=== PATIENT | female | born 1995 | race Caucasian/White ===

== ENCOUNTER 2019-07-01 18:59 | Emergency (ER) | payer MEDICAID, SELFPAY | END 2019-07-01 21:40 | disposition home or self-care (01) | PROVIDERS: Emergency Provider Emergency Medicine; Family Provider Family Medicine; Visit Provider Emergency Medicine | DX: O26.892 Other specified pregnancy related conditions, second trimester (principal); R10.9 Unspecified abdominal pain; Z3A.19 19 weeks gestation of pregnancy | CPT/HCPCS: 76815; 80053; 81001; 83690; 85025; 87086; 99281 ==

== ENCOUNTER 2019-07-09 08:21 | Outpatient (CLI) | payer MEDICAID, SELFPAY ==
--- NOTE | 2019-07-09 | US_ITS ---
WS: [id number] OB ultrasound, 07/09/2019 Clinical Data: SUBSEQUENT IN SECOND TRIMESTER Comparison: None. Findings: There is a single intrauterine in a transverse lie. The placenta is posterior and grade 0. There is a normal amount of amnionic fluid. The heart rate is 141 beats per minute. Measurements of growth and development: BPD: 4.7 cm HC: 17.6 cm AC: 15.7 cm FL: 3.2 cm The estimated weight is 352 mg or approximately 12 ounces The estimated gestational age is 20 w eeks 2 days with an ANASTACIO of approximately 11/24/2019. anatomy show a normal stomach, kidneys, bladder, cord insertion, three-vessel cord, entire spin e, four-chamber heart, lateral cerebral ventricles, cerebellum and cisterna magna. US/US OB >= 14 weeks fetus [id number] Impression: 1. Single intrauterine in a transverse lie. 2. Estimated gestational age 20 weeks 2 days with an ANASTACIO of 11/24/2019. 3. heart rate 141 beats per minute.
== END 2019-07-09 08:22 | disposition home or self-care (01) ==
LOC: RADOUTREAD 15:25
PROVIDERS: Family Provider Family Medicine; PCP Family Medicine; Visit Provider Family Medicine
DX: Z34.82 Encounter for supervision of other normal pregnancy, second trimester (principal)

== ENCOUNTER 2019-07-13 17:17 | Outpatient (CLI) | payer MEDICAID, SELFPAY ==
[2019-07-13 17:37] VITALS: BP 121/62; PULSE 78; RESP 17; TEMP 36.7
[2019-07-13 18:05] VITALS: BMI 31.4
[2019-07-13 18:30] LABS: Urine Appearance Clear (CLEAR); Urine Color Yellow (Yellow)
[2019-07-13 18:31] LABS: Bilirubin Urine Neg (NEGATIVE); Blood Urine 3+ (Negative); Glucose Urine UA Norm (Normal); Ketones Urine Negative (Negative); Leukocyte Esterase Urine Negative (Negative); Nitrate Urine Negative (Negative); Protein Urine Neg (Negative); Urobilinogen Urine 1 mg/dL (Negative); pH Urine 5 (5-7)
[2019-07-13] MEDS: acetaminophen 500 mg Tablet 1000 MG PO (18:32)
[2019-07-13 18:34] LABS: RBC Urine >100 /hpf (0-2)
[2019-07-13 18:35] LABS: Add Urine Culture? Yes; Bacteria Urine 1+; Mucus Urine 2+; Squamous Epithelial Cell Urine 0-4 (0-5)
--- NOTE | 2019-07-13 18:43 | USR_ITS ---
PROCEDURE INFORMATION: Exam: US Retroperitoneal Complete. Exam date and time: 07/13/2019 6:51 PM Age: 23 years old Clinical indication: ; Patient HX: Pain in back; Additional info: Low back pain, low abdominal pain. 21 weeks . TECHNIQUE: Imaging protocol: Real-time ultrasound of the retroperitoneum with image documentation. Complete exam. COMPARISON: No relevant prior studies available. FINDINGS: The right kidney measures 12.4 cm in length. The left kidney measures 10.5 cm in length. There is moderate right hydronephrosis. Possibly this could be secondary to hydronephrosis of . However, an occult right ureteral calculus should also be considered. Pyelonephritis might be another possible etiology. Please correlate clinically. No left hydronephrosis. No definite perinephric fluid. Neither ureter is obviously visible at this time. The renal parenchymal thickness and echogenicity are within normal limits. There is no sonographically visible renal calculus, mass, or cyst. Some echogenic material/debris in the urinary bladder. This appearance is nonspecific, but this can be seen with cystitis/infection. The included images of the urinary bladder otherwise appear essentially unremarkable. US/US renal BI* [id number] IMPRESSION: 1. Moderate right hydronephrosis, see above discussion. 2. Some echogenic material/debris in the urinary bladder, see above 3. Other findings discussed above.
[2019-07-13 18:53] VITALS: BP 116/61; PULSE 70; RESP 17
[2019-07-13 19:30] VITALS: RESP 17; TEMP 36.6
[2019-07-13 19:46] VITALS: BP 115/61; PULSE 77
[2019-07-13] MEDS: cephALEXin 500 mg Capsule PO (19:54)
--- NOTE | 2019-07-13 19:59 | PC.NURSE ---
Keflex 500mg PO TID x7 days no refill per Dr Ingram. Medication called to Will at [facility] in [place]
== END 2019-07-13 19:56 | disposition home or self-care (01) ==
LOC: OPOB 17:30 → OBGYN 17:32 → OPOB 07-14 14:16
PROVIDERS: Family Provider Family Medicine; PCP Family Medicine; Visit Provider Family Medicine
DX: O36.8190 Decreased fetal movements, unspecified trimester, not applicable or unspecified (principal); Z3A.00 Weeks of gestation of pregnancy not specified
CPT/HCPCS: 76770; 81001; 87086; 99211; A9270

== ENCOUNTER 2019-10-31 22:23 | Outpatient (CLI) | payer MEDICAID, SELFPAY ==
[2019-10-31] VITALS (8 sets, daily range): BP systolic 106–137; BP diastolic 47–68; PULSE 81–88; RESP 16; TEMP 36.7; BMI 36.8
[2019-10-31 23:59] LABS: Nitrazine Paper, PH Negative
[2019-11-01] VITALS (9 sets, daily range): BP systolic 0–129; BP diastolic 0–84; PULSE 76–84; RESP 16; TEMP 36.6
== END 2019-11-01 01:18 | disposition home or self-care (01) ==
LOC: OPOB 22:24 → OBGYN 11-01 01:10
PROVIDERS: Family Provider Family Medicine; PCP Family Medicine; Visit Provider Family Medicine
DX: O26.899 Other specified pregnancy related conditions, unspecified trimester (principal); Z3A.00 Weeks of gestation of pregnancy not specified; R10.9 Unspecified abdominal pain; N89.8 Other specified noninflammatory disorders of vagina
CPT/HCPCS: 59025; 83986; 99211

== ENCOUNTER 2019-11-18 19:53 | Emergency (ER) | payer MEDICAID, SELFPAY ==
[2019-11-18 19:55] VITALS: BP 128/87; PULSE 90; RESP 16; TEMP 36.9; O2SAT 97; BMI 37.1
--- NOTE | 2019-11-18 20:17 | USCV_ITS ---
Paola Francis Age: 24 Gender: F : 1995 Exam Date: 11/18/2019 20:53 Ordering Phys: Roselia Renee MD Technologist: Dez Mata Exam Location: [facility] [place]_ Indication: RT LEG PAIN AND EDEMA HISTORY: Lower extremity swelling. PROCEDURES: Venous duplex imaging was performed in only the right lower extremity. The following venous structures were evaluated: common femoral vein, profunda vein, proximal portion of the greater saphenous vein, superficial femoral vein, and the popliteal vein. In addition, the posterior tibial and peroneal trunk were evaluated. FINDINGS: Normal 2-D Doppler and augmentation and compressibility throughout the lower extremity venous structures. Additional imaging through the proximal calf veins also reveals no thrombus. Limited evaluation of the greater saphenous vein is patent with no thrombus.. CONCLUSIONS No evidence of right lower extremity DVT. Dhruv Son MD (Electronically Signed) Final Date: 20 Nov 2019 08:17 S
[2019-11-18 20:58] VITALS: PULSE 68
[2019-11-18 21:04] VITALS: BP 138/94; PULSE 102; RESP 18; O2SAT 96
--- NOTE | 2019-11-18 21:05 | ED_ITS ---
HPI - Extremity Problem General: Chief complaint: Extremity Problem,Nontraumatic Stated complaint: right leg swelling/no accident Time Seen by Provider: 11/18/19 20:48 Source: patient Mode of arrival: ambulatory Limitations: no limitations History of Present Illness: HPI Narrative: Patient is a 24-year-old female at almost 40 weeks who presents to ED today with complaints of left leg pain and swelling that she noticed today. Patient states she contacted her OB Dr. Ingram who recommended she come to the emergency department for DVT rule out. Patient denies any injury or trauma. She is not having any shortness of breath or difficulty breathing. She has not noticed any redness/ warmth or pallor/coolness to the extremity MD Complaint: extremity pain and extremity swelling Onset (ago): hour(s) Pain Consistency: constant Location: right Relieving factors: nothing Exacerbating factors: nothing Associated symptoms: Reports no associated symptoms; Deny chest pain or fever(s) Review of Systems Const: Denies: fever(s) or chills Card: Denies: chest pain, palpitations, edema, lightheadedness, syncope, pre- syncope or dyspnea on exertion Resp: Denies: dyspnea Musc: Reports: extremity pain and extremity swelling; Denies: joint pain, joint swelling, joint redness, joint warmth, limited range of motion or muscle weakness Neuro: Denies: numbness in extremities, weakness in extremities or sensory changes PFSH ED PFSH: Social History Smoking and tobacco status: never smoked Physical Exam Const: COMMON NORMALS: no acute distress, average body habitus, patient oriented x3, no limitations, healthy appearing, alert and well nourished Extremity: OTHER: Patient with pain located to her right calf. There is an area that feels firm that could be seen with a superficial thrombophlebitis although I do not palpate an obvious cord. Could also be seen with soft tissue strain. Calf circumference is equal bilaterally. There is no color or temperature changes noted to her extremity. DP and PT pulses are intact. Cap refill is brisk. Neuro: COMMON NORMALS: patient oriented x3 SENSORIUM/ORIENTATION: Yes alert Course Vital Signs: Vital signs: Vital Signs Temperature 98.5 F 11/18/19 19:55 Pulse Rate 102 H 11/18/19 21:04 Respiratory Rate 18 11/18/19 21:04 Blood Pressure 138/94 11/18/19 21:04 Pulse Oximetry 96 11/18/19 21:04 MDM - Extremity (Nontraumatic) MDM Narrative: Medical decision making narrative: no DVT present; no signs of infection; recommend ice/heat and follow up with Dr. Ingram this week as scheduled; return to ED precautions given Imaging Data^: US R LE venous: My impression: Per Dez Mata scanning tech?no DVT Discharge Plan Discharge Patient Disposition: Home, Self-Care Clinical Impression: Right calf pain Condition: Stable Prescriptions: No Action PNV cmb#95-ferrous fumarate-FA [] 28 mg iron- 800 mcg Tablet 1 tab PO DAILY RF: 0 Discharge Orders: Discharge Order (Routine); Ordered 11/18/19 Ordered By: Lanie Taylor Referrals: Erick Ingram MD [Primary Care Provider] - Activity Restrictions/Additional Instructions: As discussed there was no DVT present on your ultrasound today. You may apply ice/heat to affected area. Please follow up with Dr. Ingram as scheduled next week. Discharge Date/Time: 11/18/19 21:14 Coding Level of Care Code ED Technical Service Rep for Lillie Stapleton
[2019-11-18 21:13] VITALS: BP 138/94; PULSE 96; RESP 16; O2SAT 97
== END 2019-11-18 21:14 | disposition home or self-care (01) ==
LOC: ER 21:13
PROVIDERS: Emergency Provider Physician Assistant; PCP Family Medicine
DX: O26.893 Other specified pregnancy related conditions, third trimester (principal); M79.18 Myalgia, other site; Z3A.40 40 weeks gestation of pregnancy
CPT/HCPCS: 12345; 93971; 99281; 99282

== ENCOUNTER 2019-11-24 04:56 | Inpatient (IN) | payer MEDICAID, SELFPAY ==
[2019-11-24] VITALS (39 sets, daily range): BP systolic 0–166; BP diastolic 0–124; PULSE 70–97; RESP 16–22; TEMP 36.4–36.7; O2SAT 96–98; BMI 36.8
[2019-11-24 05:42] LABS: Basophils # 0.1 10^3/uL (0.0-0.1); Basophils % 0.4 %; Eosinophils # 0.1 10^3/uL (0.0-0.8); Eosinophils % 0.8 %; Hematocrit 35.2 % (37.0-47.0); Lymphocytes # 3.2 10^3/uL (0.8-4.8); Mean Corpuscular HGB Conc 34.1 g/dL (30.0-36.0); Mean Corpuscular Hemoglobin 29.1 pg (28.0-34.0); Mean Corpuscular Volume 85.4 fL (81-99); Mean Platelet Volume 10.4 fL (7.4-10.4); Monocytes % 7.8 %; Neutrophils # 8.8 10^3/uL (1.8-7.7); Neutrophils % 65.8 %; Nucleated Red Blood Cells % 0 %; Platelet Count 231 10^3/cmm (130-400); Red Blood Count 4.12 10^6/uL (4.1-5.3); Red Cell Distribution Width 13.2 % (12.1-15.1); White Blood Count 13.4 10^3/uL (4.0-10.0)
[2019-11-24] MEDS: fentaNYL 50 mcg/mL INJ 2mL IV (07:06)
[2019-11-24] MEDS: dextrose 5%-lactated ringers 1,000 ML 125 ML IV (07:30)
[2019-11-24] MEDS: oxytocin 30 UNIT/500 ML BAG 600 UNIT IV (07:55)
--- NOTE | 2019-11-24 08:24 | PM.DELIVERY ---
Delivery Note: Date of delivery: November 24, 2019 Delivery: DELIVERY: The patient progressed to complete without difficulty. She delivered a female with a weight of 8 pounds 13 ounces with Apgars of 9, 9. The baby was delivered from the LONNIE position. The baby's mouth and nose were suctioned at the site of the perineum. The baby was then completely delivered and placed on the mother's abdomen. The cord was then clamped and cut. There was no nuchal cord. There was no meconium. The placenta and 3 vessel cord were delivered intact shortly thereafter. The perineum and vaginal vault were carefully examined. No lacerations were noted. Both the mother and the baby were in stable condition. Estimated blood loss was 100 mL Post-Delivery Status: Good A&P Assessment and plan (1) Spontaneous vaginal delivery: Status: Acute (2) 39 weeks gestation of : Status: Acute Coding Level of Care Code Acute Rail Specialist for Chg Fwd Diagnoses Spontaneous vaginal delivery O80 39 weeks gestation of Z3A.39
[2019-11-24] MEDS: docusate sodium 100 mg Capsule PO ×2 (09:01→18:31)
[2019-11-24] MEDS: prenatal vitamin Capsule 1 CAP PO (09:01)
[2019-11-24] MEDS: HYDROcodone-acetaminophen 5-325 mg Tablet PO (09:02)
[2019-11-24 19:58] LABS: Hematocrit 32.5 % (37.0-47.0); Hemoglobin 10.9 g/dL (11.5-15.3); Mean Corpuscular HGB Conc 33.5 g/dL (30.0-36.0); Mean Corpuscular Hemoglobin 28.8 pg (28.0-34.0); Mean Platelet Volume 10.3 fL (7.4-10.4); Platelet Count 206 10^3/cmm (130-400); Red Blood Count 3.78 10^6/uL (4.1-5.3); Red Cell Distribution Width 13.3 % (12.1-15.1); White Blood Count 14.5 10^3/uL (4.0-10.0)
[2019-11-25 04:50] VITALS: BP 138/86; PULSE 83; RESP 18; TEMP 36.8; O2SAT 98
[2019-11-25] MEDS: prenatal vitamin Capsule 1 CAP PO (08:59)
[2019-11-25] MEDS: docusate sodium 100 mg Capsule PO (08:59)
--- NOTE | 2019-11-25 11:02 | PM.OBGYDC ---
Discharge Providers LOGISTICS ANALYTICS MANAGER Date of Admission: 11/24/19 04:56 Date of Discharge: 11/25/19 Attending Provider at Admission: Erick Ingram MD Attending Provider at Discharge: Erick Ingram MD Primary Care Provider: Erick Ingram MD Diagnoses at Discharge Discharge Diagnosis (1) Spontaneous vaginal delivery: Status: Acute (2) 39 weeks gestation of : Status: Acute Reason for Visit Reason for Visit: Reason For Visit: labor Hospital Course Hospital Course: The patient presented to the hospital in active labor. She progressed to complete without difficulty. Information Peripartum Data: Delivery Method: Vaginal Physical Exam Narrative: EXAM NARRATIVE: The patient is alert. She appears comfortable. Her heart has a regular rate and rhythm with no murmurs appreciated. Lungs are clear to auscultation bilaterally. Her fundus is firm and below the umbilicus. Discharge Data Data Completed and Pending: Labs from last 24 hours 11/24/19 19:49 WBC 14.5 H RBC 3.78 L Hgb 10.9 L Hct 32.5 L MCV 86.0 MCH 28.8 MCHC 33.5 RDW 13.3 Plt Count 206 MPV 10.3 Vitals: Last Vital Signs Temp 98.2 F 11/25/19 04:50 Pulse 83 11/25/19 04:50 Resp 18 11/25/19 04:50 BP 138/86 11/25/19 04:50 Pulse Ox 98 11/25/19 04:50 Discharge Plan Discharge Patient Disposition: Home, Self-Care Condition: Stable Prescriptions: New ibuprofen 800 mg Tablet 800 mg PO TID Qty: 45 RF: 0 Continued PNV cmb#95-ferrous fumarate-FA [] 28 mg iron- 800 mcg Tablet 1 tab PO DAILY RF: 0 Discharge Orders: Discharge Order (Routine); Ordered 11/25/19 Ordered By: Erick Ingram Referrals: Erick Ingram MD [Primary Care Provider] - 6 Weeks Discharge Diet: Regular Discharge Activity: Limit activity as instructed Patient Instructions: OB Discharge Report, OB Food/Drug Interaction Guide, OB Care at Home, OB Vaginal Deliveries Discharge Attestations LOGISTICS ANALYTICS MANAGER Time Spent in Discharge Care*: less than 30 min Coding Level of Care Code Acute Safety Security Officer for Chg Fwd Diagnoses Spontaneous vaginal delivery O80 39 weeks gestation of Z3A.39
[2019-11-25 11:50] VITALS: BP 129/90; PULSE 98; RESP 17; TEMP 36.7; O2SAT 97
== END 2019-11-25 12:00 | disposition home or self-care (01) | DRG 807 ==
LOC: OPOB 04:56 → OBGYN 04:56
PROVIDERS: Admitting Provider Family Medicine; PCP Family Medicine; Visit Provider Family Medicine
DX: O80 Encounter for full-term uncomplicated delivery (principal); Z37.0 Single live birth; Z3A.39 39 weeks gestation of pregnancy; Z77.22 Contact with and (suspected) exposure to environmental tobacco smoke (acute) (chronic)
CPT/HCPCS: 12345; 36415; 59409; 85025; 85027; 96374; J3010

== ENCOUNTER → 2020-04-07 14:15 | Outpatient (BNVA) | payer MEDICAID, SELFPAY | PROVIDERS: PCP Family Medicine; Visit Provider Nurse Practitioner Family | DX: J06.9 Acute upper respiratory infection, unspecified (principal); Z20.828 Contact with and (suspected) exposure to other viral communicable diseases; Z11.59 Encounter for screening for other viral diseases | CPT/HCPCS: 87635 ==

== ENCOUNTER → 2020-09-19 11:49 | Outpatient (BNVA) | payer BC, MEDICAID, SELFPAY | PROVIDERS: PCP Family Medicine; Visit Provider Nurse Practitioner | DX: N39.0 Urinary tract infection, site not specified (principal) | CPT/HCPCS: 81000; 87077; 87086; 87184 ==

== ENCOUNTER 2020-12-02 23:42 | Outpatient (CLI) | payer BC, MEDICAID, SELFPAY ==
[2020-12-02 23:52] VITALS: TEMP 35.9
[2020-12-02 23:53] VITALS: BP 120/70; PULSE 88
[2020-12-03 00:24] VITALS: BP 104/61; PULSE 70
[2020-12-03 00:25] VITALS: RESP 16
[2020-12-03 00:38] VITALS: BMI 35.3
[2020-12-03 00:40] LABS: Urine Appearance Cloudy (CLEAR)
[2020-12-03 00:41] LABS: Bilirubin Urine 2+ (Negative); Blood Urine 3+ (Negative); Glucose Urine UA Norm (Normal); Ketones Urine Negative (Negative); Leukocyte Esterase Urine 2+ (Negative); Nitrate Urine Negative (Negative); Protein Urine Neg (Negative); Urine Color Red (Yellow); Urobilinogen Urine Norm (Negative); pH Urine 7 (5-7)
[2020-12-03 00:42] LABS: Add Urine Culture? Yes; Bacteria Urine TRACE /hpf; RBC Urine 40-50 /hpf (0-2); Squamous Epithelial Cell Urine 0-4 /hpf (0-5); WBC Urine 25-40 /hpf (0-5)
[2020-12-03 00:55] VITALS: TEMP 36.1
[2020-12-03 00:56] VITALS: BP 109/57; PULSE 72
[2020-12-03 00:58] VITALS: BP 109/57; PULSE 72; RESP 15; TEMP 36.7
== END 2020-12-03 01:08 | disposition home or self-care (01) ==
LOC: OPOB 23:43 → OBGYN 12-03 01:05
PROVIDERS: PCP Family Medicine; Visit Provider Family Medicine
DX: O46.90 Antepartum hemorrhage, unspecified, unspecified trimester (principal); Z3A.00 Weeks of gestation of pregnancy not specified
CPT/HCPCS: 59025; 81001; 87086; 99211

== ENCOUNTER 2021-01-03 01:58 | Outpatient (CLI) | payer BC, MEDICAID, SELFPAY ==
[2021-01-03] VITALS (17 sets, daily range): BP systolic 115–140; BP diastolic 59–84; PULSE 73–103; RESP 15; TEMP 36.3–36.6; BMI 36.3
[2021-01-03] MEDS: acetaminophen 500 mg Tablet 1000 MG PO (02:49)
[2021-01-03 03:32] LABS: Add Urine Microscopic? YES; Bilirubin Urine Neg (Negative); Blood Urine 2+ (Negative); Glucose Urine UA Norm (Normal); Ketones Urine Negative (Negative); Leukocyte Esterase Urine 2+ (Negative); Nitrate Urine Negative (Negative); Protein Urine Neg (Negative); Sulfosalicylic Acid Urine Negative (Negative); Urine Appearance Clear (CLEAR); Urine Color Yellow (Yellow); Urobilinogen Urine Norm (Negative); pH Urine 8 (5-7)
[2021-01-03 03:33] LABS: Add Urine Culture? No; Bacteria Urine 1+ /hpf; Squamous Epithelial Cell Urine 15-25 /hpf (0-5); WBC Urine 40-55 /hpf (0-5)
[2021-01-03] MEDS: cefTRIAXone 1,000 MG in sodium chloride 0.9% (plus) 50 ML 100 MG IV (04:01)
[2021-01-03] MEDS: sodium chloride 0.9% 1,000 ML 999 ML IV (04:02)
[2021-01-03] MEDS: terbutaline 1 mg/mL INJ 0.25 MG SUBCUT (05:59)
[2021-01-03] MEDS: HYDROcodone-acetaminophen 5-325 mg Tablet 1 TAB PO (06:40)
--- NOTE | 2021-01-03 06:51 | PM.SDS ---
Short Stay Summary Providers Date of Admit/Discharge: 01/10/21 Attending Provider: Erick Ingram MD Primary Care Provider: Erick Ingram MD Chief Complaint: contractions HPI History of Present Illness Paola Francis is a 25 year old 3 para 2-0-0-2 female at 36 weeks and 5 days who presents to the hospital with vaginal pressure and abdominal pain. It has been going on for several hours before arriving at the hospital. After arrival to hospital, she was found to have consistent contractions. Her cervix was found to be closed. Review of Systems General: Reports: 10 or more systems reviewed and unremarkable except in HPI and below Const: Reports: fatigue; Denies: fever(s) Eyes: Denies: change in vision Card: Denies: chest pain Musc: Reports: back pain Missael/Lymph: Denies: easy bruising Home Meds/Allergies Home Medications and Allergies Home Medications Medication Instructions Recorded Confirmed Type prenat.vits,paulo,dwr-dygp-kljce 1 tab PO DAILY 09/19/20 12/03/20 History Allergies Allergy/AdvReac Type Severity Reaction Status Date / Time No Known Allergies Allergy Verified 09/19/20 10:59 PFSH Acute PFSH: Social History Smoking and tobacco status: never smoked Female Reproductive History: : 3 Vitals/I&O/Wt Last Vital Signs Temp 97.3 F L 01/03/21 02:18 Pulse 86 01/03/21 05:59 Resp 15 01/03/21 02:01 BP 140/72 01/03/21 05:59 Weight last 48 hrs Weight 225 lb Physical Exam Const: COMMON NORMALS: patient oriented x3 and alert HENMT: COMMON NORMALS: moist oral mucous membranes HEAD & SCALP: normal to inspection Chest: COMMONS NORMALS: normal inspection of the chest Resp: COMMON NORMALS: clear to auscultation bilaterally AUSCULTATION: clear to auscultation bilaterally Cardio: COMMON NORMALS: regular rate and regular rhythm RATE: regular rate RHYTHM: regular rhythm GI: INSPECTION: Yes normal to inspection and Yes other (Gravid) Extremity: COMMON NORMALS: normal to inspection GENERAL: Yes edema (Trace) Neuro: COMMON NORMALS: patient oriented x3, moves all extremities and no sensory deficits noted SENSORIUM/ORIENTATION: Yes alert Psych: COMMON NORMALS: mental status grossly normal Skin: COMMON NORMALS: no rashes or lesions noted GENERAL SKIN EXAM: no rashes or lesions noted Hospital Course Hospital Course The patient presented to the hospital where she was noted to having contractions every couple of minutes. She was hydrated with IV fluids. Her contractions did not improve. A urinalysis was performed which demonstrated a urinary tract infection. She was given Rocephin IV x1. She continued to have contractions and she was given terbutaline and hydrocodone. Her contractions improved. SSS Data Data Completed and Pending: Pending at discharge Category Date Time Status Urine Culture Sta t Lab 01/03/21 06:13 Ordered Diagnoses at Discharge Discharge Diagnosis (1) labor: Status: Acute (2) Urinary tract infection: Status: Acute Discharge Plan Discharge Patient Disposition: Home Prescriptions: No Action prenat.vits,paulo,xrw-gxbh-mkeuf Tablet 1 tab PO DAILY RF: 0 Discharge Orders: Discharge Order (Routine); Ordered 01/03/21 Ordered By: Erick Ingram Patient Instructions: Labor (GEN), Urinary Tract Infection in Women (GEN), OB Undelivered Discharge Discharge Date/Time: 01/03/21 08:40 Attestations Medical Necessity Statement*: The patient stay in the hospital will be less than 24 hours Time Spent in Patient Care*: less than 30 min Quality Metrics Clinical Quality Measures: During this hospital stay, did patient experience: None Coding Level of Care Code Acute Remediation Bioanalytics Consultant for Chg Fwd Exam Comprehensive Diagnoses labor O60.00 Urinary tract infection N39.0
== END 2021-01-03 08:40 | disposition home or self-care (01) ==
LOC: OPOB 01:59 → OBGYN 02:00
PROVIDERS: PCP Family Medicine; Visit Provider Family Medicine
DX: O26.899 Other specified pregnancy related conditions, unspecified trimester (principal); Z3A.00 Weeks of gestation of pregnancy not specified; R10.9 Unspecified abdominal pain
CPT/HCPCS: 12345; 59025; 81001; 87086; 96365; 96372; 99211; J0696; J3105; J7030

== ENCOUNTER 2021-02-21 02:27 | Inpatient (IN) | payer BC, MEDICAID, SELFPAY ==
[2021-02-21] VITALS (32 sets, daily range): BP systolic 102–141; BP diastolic 56–94; PULSE 80–126; RESP 16–20; TEMP 36.4–36.8; O2SAT 98–99; BMI 37.1
[2021-02-21] MEDS: fentaNYL 50 mcg/mL INJ 2mL IVP ×2 (03:13→04:50)
[2021-02-21] MEDS: lactated ringers 1,000 ML 999 ML IV (04:20)
[2021-02-21 05:24] LABS: Basophils # 0.1 10^3/uL (0.0-0.1); Basophils % 0.4 %; Eosinophils # 0.1 10^3/uL (0.0-0.8); Eosinophils % 1.1 %; Hematocrit 34.7 % (37.0-47.0); Hemoglobin 11.5 g/dL (11.5-15.3); Lymphocytes # 2.8 10^3/uL (0.8-4.8); Lymphocytes % 24.5 %; Mean Corpuscular HGB Conc 33.1 g/dL (30.0-36.0); Mean Corpuscular Hemoglobin 27.1 pg (28.0-34.0); Mean Corpuscular Volume 81.6 fl (81-99); Mean Platelet Volume 10.8 fL (7.4-10.4); Monocytes # 0.9 10^3/uL (0.2-0.9); Monocytes % 8.1 %; Neutrophils # 7.42 10^3/uL (1.8-7.7); Nucleated Red Blood Cells % 0 %; Platelet Count 229 10^3/cmm (130-400); Red Blood Count 4.25 10^6/uL (4.1-5.3); Red Cell Distribution Width 14.2 % (12.1-15.1); White Blood Count 11.4 10^3/uL (4.0-10.0)
[2021-02-21] MEDS: dextrose 5%-lactated ringers 1,000 ML 125 ML IV (05:54)
[2021-02-21] MEDS: oxytocin 30 UNIT/500 ML BAG 500 UNIT IV (06:08)
--- NOTE | 2021-02-21 06:34 | PM.OPHPUD ---
Labor & Delivery H&P Update Date of Procedure: February 21, 2021 Date H&P Performed: 02/17/21 H&P update information: I have reviewed H&P completed within last 30 days, I have examined patient prior to procedure and Changes to prior documentation as noted here Changes to previous documentation: The patient is 6 centimeters dilated and in active labor Admission Diagnosis: Preop diagnosis: 25-year-old 3 para 2 at 39 weeks presenting in active labor Planned procedure: Spontaneous vaginal delivery
--- NOTE | 2021-02-21 06:36 | P.PCNOB_ITS ---
Delivery Note: Date of delivery: February 21, 2021 Pre-Delivery Course: The patient is a 25-year-old 3 para 2-0-0-2 at 39 weeks estimated gestational age who presents to the hospital with spontaneous rupture of membranes. Her membranes ruptured shortly before arriving at the hospital. She is having intermittent contractions. Her contractions increased in frequency. She gradually progressed to complete without difficulty. Her was unremarkable. She was GBS negative. Glucose screen was negative. Her blood type is O+. She is Covid negative. The remainder of her labs are within normal limits. She had consistent care. Delivery: DELIVERY: The patient progressed to complete without difficulty. She delivered a male with a weight of 7 pounds 15 ounces with Apgars of 8, 9. The baby was delivered from the LONNIE position and placed on the mother's abdomen. The cord was then clamped and cut 1 minute after delivery. There was no nuchal cord. There was no meconium. The placenta and 3 vessel cord were delivered intact shortly thereafter. The perineum and vaginal vault were carefully examined. A first-degree posterior midline laceration that was not bleeding was noted but was not repaired. Both the mother and the baby were in stable condition. Post-Delivery Status: Good A&P Assessment and plan (1) 39 weeks gestation of : I anticipate routine care. She does desire sterilization. But her Covid test was done more than a week ago. We will have to see if that will be allowable. Status: Resolved (2) Spontaneous vaginal delivery: Status: Resolved (3) Sterilization consult: Status: Acute Coding Level of Care Code Acute Virtual Office Assistant for Lillie Stapleton Diagnoses 39 weeks gestation of Z3A.39 Spontaneous vaginal delivery O80 Sterilization consult Z30.09
[2021-02-21] MEDS: oxytocin 30 UNIT/500 ML BAG 600 UNIT IV (07:50)
[2021-02-21] MEDS: miSOPROStol 200 mcg Tablet 800 MCG PR (09:15)
[2021-02-21] MEDS: ibuprofen 800 mg tablet PO ×2 (14:56→21:45)
[2021-02-21] MEDS: docusate sodium 100 mg Capsule PO (18:26)
[2021-02-21 18:44] LABS: Hematocrit 29.5 % (37.0-47.0); Hemoglobin 9.7 g/dL (11.5-15.3); Mean Corpuscular HGB Conc 32.9 g/dL (30.0-36.0); Mean Corpuscular Hemoglobin 27.1 pg (28.0-34.0); Mean Corpuscular Volume 82.4 fl (81-99); Platelet Count 175 10^3/cmm (130-400); Red Blood Count 3.58 10^6/uL (4.1-5.3); Red Cell Distribution Width 14.1 % (12.1-15.1); White Blood Count 13.9 10^3/uL (4.0-10.0)
[2021-02-22] VITALS (11 sets, daily range): BP systolic 108–139; BP diastolic 62–88; PULSE 60–88; RESP 12–18; TEMP 36.4–36.8; O2SAT 94–99
--- NOTE | 2021-02-22 06:02 | P.HP_ITS ---
Providers/Chief Complaint Admitting Physician: Erick Ingram MD Primary Care Provider: Erick Ingram MD Chief Complaint: possible SROM HPI CAREER LAW CLERK History of Present Illness Paola Francis is a 25 year old female at 39 weeks who presented to the hospital with spontaneous rupture of membranes. She progressed to complete and had an unremarkable delivery of a healthy appearing male . Earlier in her she had expressed a desire for sterilization. We discussed options and alternatives. We discussed the risks of a tubal ligation including the risks of bleeding, infection, and damage to intra-abdominal organs. We also discussed the 1 and 200 chance of becoming after successful tubal ligation. After discussion, she expressed a desire to have it done, and signed her consent for it. After delivering her baby, she once again expressed a desire to a tubal ligation performed. Present Details : 3 Para: 2 Labs Rubella: Immune RPR: Negative GBS: Negative Review of Systems General: Reports: 10 or more systems reviewed and unremarkable except in HPI and below Const: Reports: fatigue; Denies: fever(s) Eyes: Denies: change in vision Card: Denies: chest pain GI: Reports: heartburn Musc: Reports: back pain Neuro: Reports: headache(s) (Intermittently during her ) Missael/Lymph: Denies: easy bruising Medications/Allergies Home Medications Medication Instructions Recorded Confirmed Last Taken Type prenat.vits,paulo,klx-kvnm-xvqqm 1 tab PO DAILY 09/19/20 02/21/21 02/20/21 08:00 History Allergies Allergy/AdvReac Type Severity Reaction Status Date / Time No Known Allergies Allergy Verified 09/19/20 10:59 PFSH CAREER LAW CLERK PFSH: Social History Smoking and tobacco status: never smoked Vitals/I&O/Wt Last Vital Signs Temp 98.1 F 02/22/21 04:00 Pulse 76 02/22/21 04:00 Resp 17 02/21/21 20:00 BP 118/79 02/22/21 04:00 Pulse Ox 97 02/22/21 04:00 02/21/21 02/21/21 02/22/21 14:59 22:59 06:59 Intake Total 2110 / 2110 Output Total 350 / 350 Balance 1760 / 1760 Weight last 48 hrs Weight 230 lb Physical Exam Narrative: EXAM NARRATIVE: Fundus is firm and below the umbilicus Const: COMMON NORMALS: patient oriented x3 and alert HENMT: COMMON NORMALS: moist oral mucous membranes HEAD & SCALP: normal to inspection Chest: COMMONS NORMALS: normal inspection of the chest Resp: COMMON NORMALS: clear to auscultation bilaterally AUSCULTATION: clear to auscultation bilaterally Cardio: COMMON NORMALS: regular rate and regular rhythm RATE: regular rate RHYTHM: regular rhythm GI: INSPECTION: Yes normal to inspection Extremity: COMMON NORMALS: normal to inspection GENERAL: Yes edema (Trace) Neuro: COMMON NORMALS: patient oriented x3, moves all extremities and no sensory deficits noted SENSORIUM/ORIENTATION: Yes alert Psych: COMMON NORMALS: mental status grossly normal Skin: COMMON NORMALS: no rashes or lesions noted GENERAL SKIN EXAM: no rashes or lesions noted Data : 02/21/21 18:25 A&P Assessment and plan (1) Sterilization consult: We will proceed with a tubal ligation at 8:00 this morning. Status: Acute (2) Spontaneous vaginal delivery: Status: Resolved (3) 39 weeks gestation of : Status: Resolved Attestations Medical Necessity Statement*: I anticipate the patient will be discharged today after recovery from the tubal ligation Coding Level of Care Code Acute Conveyor Line Battery Charger for Chg Fwd Diagnoses Sterilization consult Z30.09 Spontaneous vaginal delivery O80 39 weeks gestation of Z3A.39
--- NOTE | 2021-02-22 07:45 | ANES.PREANE2 ---
Pre-Anesthetic Assessment Pre-Anesthetic Assessment: Height/Weight: Height 1.68 m Weight 104.326 kg Temp Pulse Resp BP Pulse Ox 98.1 F 76 17 118/79 97 02/22/21 04:00 02/22/21 04:00 02/21/21 20:00 02/22/21 04:00 02/22/21 04:00 Preop Diagnosis: 25-year-old 3 para 2 at 39 weeks presenting in active labor Proposed Procedure: Operation Date: 02/22/21 08:20 Proposed Procedures p Bilateral Tubal Ligation(Bilateral) - Erick Ingram MD Familial anesthetic complications: Patient states when she had surgery as a child her mother told her she had some swelling, but has had surgery since and no swelling Was Beta [place] taken within 24 hours: N/A Was Clonidine taken within 24 hours: N/A Last intake: Intake Last Liquid Date 02/21/21 Last Liquid Time 22:30 Last Solid Date 02/21/21 Last Solid Time 18:30 Social: Social History: No alcohol and No tobacco Exam: Pre-Anes Outpt Exam: alert, oriented x 3, clear to auscultation bilaterally and regular rate & rhythm Airway: Cervical ROM: WNL Dentition: Full Anesthetic Plan: ASA status: 2 Anesthesia: General Risk of > 500 ml blood loss (7ml/kg in children): No Meds/Allergies Current Medications: Current Medications Generic Name Dose Route Start Last Admin Trade Name Freq PRN Reason Stop Dose Admin Docusate Sodium 100 mg 02/21/21 18:00 02/21/21 18:26 Docusate Sodium 100 Mg Capsule PO 100 mg BID BINA Administration Fentanyl 25 - 100 mcg 02/21/21 02:27 02/21/21 04:50 Fentanyl 50 Mcg/ Ml Inj 2ml IVP 25 mcg Q1H PRN Administration SEVERE PAIN Oxytocin 30 unit in 500 ml s @ 600 mls/hr 02/21/21 02:27 02/21/21 07:50 Pitocin IV Infused .Q50M PRN Titration After delivery of Protocol Tranexamic Acid 1, 000 mg/ 110 mls @ 330 mls /hr 02/21/21 02:27 02/21/21 11:16 Sodium Chloride IV Infused Q30M PRN Infusion BLEEDING Dextrose/Lactated Ringer's 1,000 mls @ 125 m ls/hr 02/21/21 02:30 02/21/21 18:33 Dextrose 5%-Lact ated Ringers IV Not Given .Q8H BINA Lactated Ringer's 1,000 mls @ 999 m ls/hr 02/21/21 04:17 02/21/21 05:21 Lactated Ringers IV Infused .Q1H1M PRN Infusion See label comment s Oxytocin 30 unit in 500 ml s @ 600 mls/hr 02/21/21 07:47 02/21/21 11:16 Pitocin IV Infused .Q50M PRN Titration After delivery of infant Protocol Ibuprofen 800 mg 02/21/21 15:00 02/21/21 21:45 Ibuprofen 800 Mg Tablet PO 800 mg TID BINA Administration PFSH Anesthesia PFSH: Social History Smoking and tobacco status: never smoked Female Reproductive History: : 3 Data Anesthesia CBC & Chem 7: 02/21/21 18:25 Other Labs: Laboratory Results - last 48 hr 02/21/21 02/21/21 02:24 18:25 WBC 11.4 H 13.9 H RBC 4.25 3.58 L Hgb 11.5 9.7 L Hct 34.7 L 29.5 L MCV 81.6 82.4 MCH 27.1 L 27.1 L MCHC 33.1 32.9 RDW 14.2 14.1 Plt Count 229 175 MPV 10.8 H 10.0 Neut % (Auto) 65.0 Lymph % (Auto) 24.5 [place] % (Auto) 8.1 Eos % (Auto) 1.1 Baso % (Auto) 0.4 Neut # (Auto) 7.42 Lymph # (Auto) 2.8 [place] # (Auto) 0.9 Eos # (Auto) 0.1 Baso # (Auto) 0.1 Nucleated RBC % (auto) 0 Nucleated RBCs # 0.0 Cardiac Studies: No Data to Display
[2021-02-22] MEDS: sodium chloride 0.9% 1,000 ML 30 ML IV (07:57)
--- NOTE | 2021-02-22 08:47 | P.OP_ITS ---
Operative Report Date of procedure: February 22, 2021 Pre-op Diagnosis: female desiring sterilization Post-op diagnosis: same Procedure Done: minilaparotomy bilateral tubal ligation Specimens removed/disposition: 1. Bilateral fallopian tube segments with the right segment being tagged Pathology: other Pathology: Bilateral fallopian tube segments with the right segment being tagged Anesthesia: General Estimated blood loss (mL): 10 Complications: None Condition: stable Disposition: floor (OB) Procedure: The patient was brought back to the operating room where anesthesia was found to be adequate. 10 mL of 0.5% bupivacaine was then used to pre- anesthetize the area just inferior to the umbilicus. A #15 blade was then used to make a 3 cm transverse incision just inferior to the umbilicus. I then dissected down to the underlying subcutaneous tissue until arriving at the fascia. The fascia was then nicked with the scalpel. The fascial incision was extended manually. I identified the fundus of the uterus and followed it to the left fallopian tube. The fallopian tube was then followed to the fimbria. The tube was then ligated, cut, and cauterized in a modified De Ruyter fashion using 0 chromic. The right fallopian tube was then identified and followed through to the fimbria. It was ligated, cut, and cauterized in similar fashion. The right fallopian tube was tagged. Both fallopian tubes had excellent hemostasis. The fascia was reapproximated using 0 Vicryl in running stitch. The s ubcutaneous tissue was carefully examined and no further bleeding was noted. The skin was then reapproximated using 4-0 Vicryl in a running subcuticular stitch. A sterile dressing was placed. All counts were correct x2. The patient was moved to the recovery room in stable condition. Associated Problem List Diagnoses (1) Sterilization consult: (2) Spontaneous vaginal delivery:
--- NOTE | 2021-02-22 08:56 | P.PCN_ITS ---
PACU note PACU note: VSS, Good respiratory effort, report to LAB TECHNOLOGIST Post-Anesthesia Exam: awake
--- NOTE | 2021-02-22 08:56 | PM.PACU ---
PACU note PACU note: VSS, Good respiratory effort, report to STRADDLE BUG DRIVER Post-Anesthesia Exam: awake
--- NOTE | 2021-02-22 08:59 | SUR.PHASEI ---
pt awake alert taking occ ice chips vss pt denies pain and nausea, abd soft dressing to umbilical area d/i SCD'S on
--- NOTE | 2021-02-22 09:17 | PM.OBGYDC ---
Discharge Providers ASE CERTIFIED TECHNICIAN Date of Admission: 02/21/21 02:27 Date of Discharge: 02/22/21 Attending Provider at Admission: Erick Ingram MD Attending Provider at Discharge: Erick Ingram MD Primary Care Provider: Erick Ingram MD Diagnoses at Discharge Discharge Diagnosis (1) Sterilization consult: Status: Acute (2) Spontaneous vaginal delivery: Status: Resolved (3) 39 weeks gestation of : Status: Resolved Reason for Visit Reason for Visit: possible [facility] Hospital Course Hospital Course The patient presented to the hospital with spontaneous rupture of membranes. She progressed to complete and had an unremarkable vaginal delivery of a healthy appearing term male infant. Her course was remarkable for desiring a tubal ligation. That was performed this morning without difficulty. She bottle-fed her infant. Her bleeding was within normal limits. Her pain was well controlled. There were no concerns. Information Peripartum Data: Delivery Method: Vaginal Physical Exam Narrative: EXAM NARRATIVE: The patient is alert. She appears comfortable. Her heart has a regular rate and rhythm with no murmurs appreciated. Lungs are clear to auscultation bilaterally. Her fundus is firm and below the umbilicus. Discharge Data Data Completed and Pending: Pending at discharge Category Date Time Status Hemagram Timed Lab 02/22/21 20:52 Uncollected Pathology: Surgic al [PTH] Routine Pth 02/22/21 08:17 Ordered Labs from last 24 hours 02/21/21 18:25 WBC 13.9 H RBC 3.58 L Hgb 9.7 L Hct 29.5 L MCV 82.4 MCH 27.1 L MCHC 32.9 RDW 14.1 Plt Count 175 MPV 10.0 Vitals: Last Vital Signs Temp 97.6 F 02/22/21 09:10 Pulse 61 02/22/21 09:10 Resp 17 02/22/21 09:10 BP 109/70 02/22/21 09:10 Pulse Ox 97 02/22/21 09:10 Discharge Plan Discharge Patient Disposition: Home Condition: Stable Prescriptions: New ibuprofen 800 mg Tablet 800 mg PO TID Qty: 45 RF: 0 hydrocodone-acetaminophen 5-325 mg Tablet 1 tab PO Q6H PRN (Reason: Moderate To Severe Pain) Qty: 20 RF: 0 Continued prenat.vits,paulo,wkv-[id number]-mwfwe Tablet 1 tab PO DAILY RF: 0 Discharge Orders: Discharge Order (Routine); Ordered 02/22/21 Ordered By: Erick Ingram Referrals: Erick Ingram MD [Primary Care Provider] - 4-7 days (Also set up for 6 weeks. Thanks. :-)) Discharge Diet: Usual diet Discharge Activity: Limit activity as instructed Patient Instructions: Your Baby (DC), How to Hold and Breastfeed Your Baby (DC), and Nipple Soreness (DC), Breast Fullness Versus Breast Engorgement (DC), and Plugged Ducts (DC), Vaginal Delivery (DC), Pre-eclampsia and Eclampsia (DC), OB Discharge Report, OB Food/Drug Interaction Guide, OB Care at Home, Opioid Safety, OB Home Care, Abnormal Bleeding, Depression Discharge Attestations ASE CERTIFIED TECHNICIAN Time Spent in Discharge Care*: less than 30 min Specific Discharge Activities: Specific discharge activities: educating patient and educating and/or supporting family/caregiver Coding Level of Care Code Acute Research Anthropologist for Chg Fwd Diagnoses Sterilization consult Z30.09 Spontaneous vaginal delivery O80 39 weeks gestation of Z3A.39
[2021-02-22] MEDS: docusate sodium 100 mg Capsule PO (09:32)
[2021-02-22] MEDS: ibuprofen 800 mg tablet PO (09:33)
[2021-02-22] MEDS: HYDROcodone-acetaminophen 5-325 mg Tablet PO (10:05)
== END 2021-02-22 15:03 | disposition home or self-care (01) | DRG 798 ==
LOC: OPOB 06:41 → OBGYN 06:41
PROVIDERS: Admitting Provider Family Medicine; PCP Family Medicine; Visit Provider Family Medicine
PROC: 0U574ZZ Destruction of Bilateral Fallopian Tubes, Percutaneous Endoscopic Approach (ICD-10-PCS; CPT 58605; principal; 2021-02-22 08:00)
DX: O80 Encounter for full-term uncomplicated delivery (principal); Z37.0 Single live birth; Z3A.39 39 weeks gestation of pregnancy; Z77.22 Contact with and (suspected) exposure to environmental tobacco smoke (acute) (chronic); Z30.2 Encounter for sterilization
CPT/HCPCS: 12345; 36415; 59025; 59409; 83986; 85025; 85027; 88302; 96374; 99211; J0330; J2405; J2704; J2710; J3010; J3490; J7030

== ENCOUNTER → 2021-10-11 10:10 | Outpatient (BNVA) | payer BC, MEDICAID, SELFPAY | PROVIDERS: PCP Family Medicine; Visit Provider Nurse Practitioner | DX: R82.90 Unspecified abnormal findings in urine (principal); N39.0 Urinary tract infection, site not specified | CPT/HCPCS: 81000 ==

== ENCOUNTER → 2021-10-19 19:12 | Outpatient (BNVA) | payer BC, MEDICAID, SELFPAY | PROVIDERS: PCP Family Medicine; Visit Provider Registered Nurse Neonatal Intensive Care | DX: N39.0 Urinary tract infection, site not specified (principal) | CPT/HCPCS: 81000; 87077; 87086; 87184 ==

== ENCOUNTER 2023-10-20 17:34 | Emergency (ER) | payer MEDICAID, SELFPAY ==
[2023-10-20 17:42] VITALS: BP 124/81; PULSE 68; RESP 18; TEMP 36.6; O2SAT 99
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
[2023-10-20 19:25] VITALS: PULSE 65; RESP 16; O2SAT 98
[2023-10-20 19:26] VITALS: PULSE 65; RESP 16; O2SAT 98
== END 2023-10-20 19:16 | disposition home or self-care (01) ==
PROVIDERS: Emergency Provider Nurse Practitioner Family; PCP Family Medicine
DX: S29.012A Strain of muscle and tendon of back wall of thorax, initial encounter (principal); V53.6XXA Passenger in pick-up truck or van injured in collision with car, pick-up truck or van in traffic accident, initial encounter
CPT/HCPCS: 72072; 99283

== ENCOUNTER 2023-10-26 18:49 | Emergency (ER) | payer MEDICAID, SELFPAY ==
[2023-10-26 18:52] VITALS: BP 121/82; PULSE 75; RESP 16; TEMP 36.7; O2SAT 98
--- NOTE | 2023-10-26 18:59 | US_ITS ---
WS: [id number] ULTRASOUND SOFT TISSUES RIGHT calf HISTORY: hematoma/ abscess COMPARISON: TECHNIQUE: 2-D and color Doppler imaging is submitted. Ultrasound directed to the area of the RIGHT calf where there is superficial hematoma. No significa nt abnormality is noted by ultrasound. IMPRESSION: No soft tissue mass identified by ultrasound of the RIGHT calf.
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
[2023-10-26 19:16] LABS: Basophils # 0.1 10^3/uL (0.0-0.1); Basophils % 0.6 %; Eosinophils # 0.1 10^3/uL (0.0-0.8); Eosinophils % 1.3 %; Hematocrit 39.3 % (36-47); Lymphocytes % 27.8 %; Mean Corpuscular HGB Conc 34.4 g/dL (30-55); Mean Corpuscular Hemoglobin 28.9 pg (27-33); Mean Corpuscular Volume 84.2 fl (85-98); Mean Platelet Volume 10.4 fL (7.4-10.4); Monocytes # 0.9 10^3/uL (0.2-0.9); Monocytes % 8.4 %; Neutrophils # 6.66 10^3/uL (1.8-7.7); Neutrophils % 61.6 %; Nucleated Red Blood Cells % 0 %; Platelet Count 244 10^3/cmm (157-399); Red Blood Count 4.67 10^6/uL (3.85-5.65); Red Cell Distribution Width 12.8 % (12.1-15.1); White Blood Count 10.82 10^3/uL (3.29-11.43)
[2023-10-26 19:23] LABS: Erythrocyte Sedimentation Rate 24 mm/hr (0-15)
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
[2023-10-26 19:42] LABS: Alanine Aminotransferase 12 U/L (0-33); Albumin Level 4.3 g/dL (3.5-5.2); Alkaline Phosphatase 95 U/L (35-105); Anion Gap 13.9 (5-19); Aspartate Amino Transferase 17 U/L (0-32); Blood Urea Nitrogen 10 mg/dL (6-20); C Reactive Protein 6.4 mg/L (0.0-4.9); Calcium 8.9 mg/dL (8.5-10.5); Carbon Dioxide 27 mmol/L (22-29); Chloride 100 mmol/L (98-107); Creatinine Clr Calc Pharmacy 194.3677; Globulin 3.1 g/dL (1.3-4.6); Glomerular Filtration Rate 146.9 mL/min (90-130); Glucose 81 mg/dL (65-115); Osmolality Calculated 282 mOsm/kg (285-295); Potassium 3.9 mmol/L (3.5-5.1); Sodium 137 mmol/L (136-145); Total Bilirubin 0.4 mg/dL (0.15-1.2); Total Protein 7.4 g/dL (6.6-8.7)
[2023-10-26 21:03] VITALS: BP 115/80; PULSE 64; RESP 16; O2SAT 98
[2023-10-26] MEDS: sulfamethoxazole-trimeth DS 160-800 mg Tablet 1 TAB PO (22:17)
== END 2023-10-26 22:18 | disposition home or self-care (01) ==
PROVIDERS: Emergency Provider Nurse Practitioner Family; PCP Family Medicine
DX: S80.11XA Contusion of right lower leg, initial encounter (principal); V89.2XXA Person injured in unspecified motor-vehicle accident, traffic, initial encounter
CPT/HCPCS: 73590; 76882; 80053; 85025; 85651; 86140; 93971; 99284

== ENCOUNTER 2024-01-16 10:24 | Inpatient (IN) | payer SELFPAY ==
[2024-01-16 10:41] VITALS: BP 121/85; PULSE 68; RESP 18; TEMP 36.3; O2SAT 97; BMI 33.5
[2024-01-16 10:46] VITALS: BP 121/85; PULSE 68; RESP 18; TEMP 36.3; O2SAT 97
--- NOTE | 2024-01-16 11:02 | W.ED.PSYCHS ---
HPI - Psych General: Chief Complaint: Psychiatric Symptoms Stated Complaint: RILEY AWAD Time Seen by Provider: 01/16/24 10:52 Source: patient Limitations: no limitations History of Present Illness: 28-year-old female has a history of depression states over the last week she has been under a lot more stress having increased depression along with suicidal thoughts she has a plan to kill herself with taking pills she is on Paxil does not see a psychiatrist she does have a PCP denies any previous admissions. Associated symptoms: Reports depression and suicidal ideation Review of Systems Const: Denies: fever(s), chills, body aches or change in appetite ENMT: Denies: throat pain or dental pain Card: Denies: chest pain Resp: Denies: dyspnea GI: Denies: abdominal pain, nausea, vomiting or diarrhea Musc: Denies: neck pain or back pain Skin/Breast: Denies: rash Neuro: Denies: headache(s) Psych: Reports: depression and suicidal ideation [facility] PFSH: Social History Smoking and tobacco/nicotine status: never used tobacco/nicotine Physical Exam Const: COMMON NORMALS: no acute distress, patient oriented x3 and healthy appearing HENMT: COMMON NORMALS: normocephalic and atraumatic HEAD & SCALP: normocephalic and atraumatic Neck/C-Spine: COMMON NORMALS: full ROM and supple Chest: COMMONS NORMALS: normal inspection of the chest Resp: COMMON NORMALS: normal respiratory effort, No retractions, No use of accessory muscles and clear to auscultation bilaterally AUSCULTATION: clear to auscultation bilaterally Cardio: COMMON NORMALS: regular rate, regular rhythm and No murmurs present (Cardio) RATE: regular rate RHYTHM: regular rhythm Extremity: COMMON NORMALS: normal to inspection and full ROM Neuro: COMMON NORMALS: patient oriented x3, moves all extremities and no focal motor deficits Psych: COMMON NORMALS: mental status grossly normal, Normal thought process present and cooperative THOUGHT PROCESS: Normal thought process present Skin: COMMON NORMALS: no rashes or lesions noted and no wounds GENERAL SKIN EXAM: no rashes or lesions noted Course Vital Signs: Vital signs: Vital Signs Temperature 97.3 F L 01/16/24 10:46 Pulse Rate 68 01/16/24 10:46 Respiratory Rate 18 01/16/24 10:46 Blood Pressure 121/85 01/16/24 10:46 Pulse Oximetry 97 01/16/24 10:46 Oxygen Delivery Me thod Room Air 01/16/24 10:46 MDM - Psych Medical Decision Making Patient presents for suicidal ideation he is medically cleared he is placed under 96-hour hold will admit at this time. Medical Records I reviewed the patient's medical records. Lab Data I reviewed the patient's lab results. 01/16/24 11:20 01/16/24 11:20 Laboratory Results WBC 6.94 10^3/uL (3.29-11.43) 01/16/24 11:20 RBC 4.74 10^6/uL (3.85-5.65) 01/16/24 11:20 Hgb 13.90 g/dL (11.27-16.99) 01/16/24 11:20 Hct 40.9 % (36-47) 01/16/24 11:20 MCV 86.3 fl (85-98) 01/16/24 11:20 MCH 29.3 pg (27-33) 01/16/24 11:20 MCHC 34.0 g/dL (30-55) 01/16/24 11:20 RDW 12.2 % (12.1-15.1) 01/16/24 11:20 Plt Count 235 10^3/cmm (157-399) 01/16/24 11:20 MPV 10.6 fL (7.4-10.4) H 01/16/24 11:20 Neut % (Auto) 60.1 % 01/16/24 11:20 Lymph % (Auto) 28.8 % 01/16/24 11:20 [place] % (Auto) 7.9 % 01/16/24 11:20 Eos % (Auto) 2.0 % 01/16/24 11:20 Baso % (Auto) 0.9 % 01/16/24 11:20 Neut # (Auto) 4.17 10^3/uL (1.8-7.7) 01/16/24 11:20 Lymph # (Auto) 2.0 10^3/uL (0.8-4.8) 01/16/24 11:20 [place] # (Auto) 0.6 10^3/uL (0.2-0.9) 01/16/24 11:20 Eos # (Auto) 0.1 10^3/uL (0.0-0.8) 01/16/24 11:20 Baso # (Auto) 0.1 10^3/uL (0.0-0.1) 01/16/24 11:20 Nucleated RBC % (auto) 0 % 01/16/24 11:20 Nucleated RBCs # 0.0 /100WBC 01/16/24 11:20 Potassium 4.1 mmol/L (3.5-5.1) 01/16/24 11:20 Chloride 101 mmol/L (98-107) 01/16/24 11:20 Carbon Dioxide 26 mmol/L (22-29) 01/16/24 11:20 Anion Gap 12.1 (5-19) 01/16/24 11:20 BUN 7 mg/dL (6-20) 01/16/24 11:20 Creatinine 0.5 mg/dL (0.5-0.9) 01/16/24 11:20 Glucose 90 mg/dL (65-115) 01/16/24 11:20 Calcium 9.3 mg/dL (8.5-10.5) 01/16/24 11:20 Total Bilirubin 0.4 mg/dL (0.15-1.2) 01/16/24 11:20 AST 12 U/L (0-32) 01/16/24 11:20 ALT 10 U/L (0-33) 01/16/24 11:20 Alkaline Phosphatase 87 U/L (35-105) 01/16/24 11:20 Total Protein 7.4 g/dL (6.6-8.7) 01/16/24 11:20 Albumin 3.9 g/dL (3.5-5.2) 01/16/24 11:20 Globulin 3.5 g/dL (1.3-4.6) 01/16/24 11:20 No radiology studies performed this visit Discharge Plan Discharge Patient Disposition: Admitted As Inpatient Clinical Impression: Suicidal ideation Condition: Stable Prescriptions: No Action fluoxetine 20 mg capsule 40 mg PO DAILY amoxicillin-pot clavulanate 875-125 mg tablet 1 tab PO BID 7 Days Qty: 14 0RF Referrals: Erick Ingram MD [Primary Care Provider] - Coding Level of Care Code ED Taker Off Hemp Fiber for Lillie Stapleton
[2024-01-16 11:27] LABS: Basophils # 0.1 10^3/uL (0.0-0.1); Basophils % 0.9 %; Eosinophils # 0.1 10^3/uL (0.0-0.8); Hematocrit 40.9 % (36-47); Lymphocytes % 28.8 %; Mean Corpuscular Hemoglobin 29.3 pg (27-33); Mean Corpuscular Volume 86.3 fl (85-98); Mean Platelet Volume 10.6 fL (7.4-10.4); Monocytes # 0.6 10^3/uL (0.2-0.9); Monocytes % 7.9 %; Neutrophils # 4.17 10^3/uL (1.8-7.7); Neutrophils % 60.1 %; Nucleated Red Blood Cells % 0 %; Platelet Count 235 10^3/cmm (157-399); Red Blood Count 4.74 10^6/uL (3.85-5.65); Red Cell Distribution Width 12.2 % (12.1-15.1); White Blood Count 6.94 10^3/uL (3.29-11.43)
[2024-01-16 11:48] LABS: Alanine Aminotransferase 10 U/L (0-33); Albumin Level 3.9 g/dL (3.5-5.2); Alkaline Phosphatase 87 U/L (35-105); Anion Gap 12.1 (5-19); Aspartate Amino Transferase 12 U/L (0-32); Blood Urea Nitrogen 7 mg/dL (6-20); Calcium 9.3 mg/dL (8.5-10.5); Carbon Dioxide 26 mmol/L (22-29); Chloride 101 mmol/L (98-107); Creatinine Clr Calc Pharmacy 193.8875; Globulin 3.5 g/dL (1.3-4.6); Glomerular Filtration Rate 146.9 mL/min (90-130); Glucose 90 mg/dL (65-115); Osmolality Calculated 278 mOsm/kg (285-295); Potassium 4.1 mmol/L (3.5-5.1); Sodium 135 mmol/L (136-145); Total Bilirubin 0.4 mg/dL (0.15-1.2); Total Protein 7.4 g/dL (6.6-8.7)
[2024-01-16 11:53] LABS: Acetaminophen < 5.0 ug/mL (10-30); Alcohol Level < 10 mg/dL (0-10); Salicylate < 0.3 mg/dL (3-10)
[2024-01-16 12:21] LABS: HCG Qualitative Urine. Negative (Negative)
[2024-01-16 12:30] LABS: Amphetamines Screen Urine Negative (Negative); Barbiturates Screen Urine Negative (Negative); Benzodiazepines Screen Urine Negative (Negative); Cocaine Screen Urine Negative (Negative); Opiate Screen Urine Negative (Negative); PCP Screen Urine Negative (Negative); THC Screen Urine Negative (Negative)
[2024-01-16 15:24] VITALS: BP 103/61; PULSE 85; RESP 16; TEMP 36.7; O2SAT 99
--- NOTE | 2024-01-16 15:25 | PC.NURSE ---
96 hr rights reviewed with patient @[id number] with assistance of RADHA Gonzales. All education reviewed with patient. No questions or concerns verbalized at this time to HS. Patient copy left with patient. No further needs.
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
[2024-01-16] MEDS: amoxicillin-clav 875-125 mg Tablet 1 TAB PO (21:22)
[2024-01-16 22:00] VITALS: BP 122/81; PULSE 80; RESP 18; TEMP 36.7; O2SAT 96
--- NOTE | 2024-01-17 05:54 | W.PM.NPUH&PS ---
Providers/Chief Complaint Admitting Physician: William Young MD Primary Care Provider: Erick Ingram MD Chief Complaint: MHE, SI HPI NPU History of Present Illness Paola Combs is a 28 year old female who presented to the emergency department with the following report: Chief Complaint: Psychiatric Symptoms Stated Complaint: MHE, SI Time Seen by Provider: 01/16/24 10:52 Source: patient Limitations: no limitations History of Present Illness: 28-year-old female has a history of depression states over the last week she has been under a lot more stress having increased depression along with suicidal thoughts she has a plan to kill herself with taking pills she is on Paxil does not see a psychiatrist she does have a PCP denies any previous admissions. Associated symptoms: Reports depression and suicidal ideation. She was admitted to the neuropsychiatric unit for definitive treatment of those issues. She has no psychiatric treatment history and the [facility] psychiatric system but she did have a visit to the crisis stabilization center a few days ago. An excerpt of that note is included below for context. Patient presents today reporting: Chief complaint The patient reported feeling tearful and having bad thoughts that led to her hospitalization. She mentioned that she had been feeling like she wanted to sleep all the time and that her mind had been going haywire. She also reported feeling numb and having issues with weight gain. History of the present complaint The patient, born on [birth year], reported that she started taking fluoxetine when her youngest child was between six and eight months old due to persistent crying and emotional distress. The medication initially seemed to help, but in October of this year, she began to experience a desire to sleep excessively and her mind became increasingly chaotic. She reported that her dosage was increased to 40mg in October, which initially seemed to help, but she has since regressed to her previous state of excessive sleep and mental unrest. The patient reported having suicidal thoughts, which led her to seek help at the hospital. 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 She expressed uncertainty about whether her medication dosage might be contributing to her mental state, but she does not believe this to be the case. The patient has never been in a psychiatric hospital before and has not seen a psychiatrist or therapist. She has only ever taken fluoxetine for her depression and anxiety. She reported that her symptoms of depression include low mood, feelings of hopelessness, difficulty sleeping, and excessive sleep. She also reported that she has been eating one to two times a day and has been gaining weight over the past few months. The patient reported that she has been feeling low energy unless she forces herself to be active. She also mentioned having thoughts of not wanting to wake up, particularly in the past week. However, she clarified that she has not had thoughts of actively killing herself or engaging in self-injurious behavior. The patient reported that her anxiety has been increasing recently. She has been twice and has three children. She reported that her finances have been challenging, but she has been trying not to let it affect her. She also mentioned that her relationship with her ex- and the father of her oldest child has been a source of stress. The patient denied experiencing paranoia, hallucinations, nightmares, or flashbacks about traumatic events in her life. She also denied having obsessive behaviors. She reported that she was born prematurely and had to stay in the hospital for two months. She also had an ear infection that delayed her learning to walk. She reported having a speech impediment due to the way her teeth are positioned, but she did not require any learning support or special education classes. The patient reported that she identifies as heterosexual and her longest relationship has been six years. She has been twice and has three children. She denied having any legal problems or medical issues. She described her mood as fair and denied having any current thoughts of hurting herself or others. She also denied experiencing paranoia or hallucinations. The patient reported that she was previously on fluoxetine, which initially helped her symptoms but eventually made her feel numb. She expressed a willingness to try a combination of fluoxetine and Wellbutrin to manage her symptoms. Mental health history The patient started taking fluoxetine when her youngest child was between six and eight months old due to constant crying. The medication seemed to help initially, but in October of this year, she started feeling like she wanted to sleep all the time again. Her dose was increased to 40mg, but she reported that her mind started going haywire again. She has never been in a psychiatric hospital before and has not seen a psychiatrist or therapist. She has only been on Prozac for her depression and anxiety. Social history The patient reported no tobacco, alcohol, or drug use. She has three children and is currently . She works at [employer] and travels around for work. She reported some financial stress but has support from her family. She has no history of legal problems or arrests. Per her 01/12/2024 [facility]/crisis stabilization center note: Current Presentation: Client is a 28-year-old female, appears stated age, she is heavyset. Client is wearing an [employer] T shirt because that is where she works, and identifies wearing her husbands shorts because Im putting on a lot of weight and sandals. Client has red curly hair pulled up. Client has a limping gait and does appear to have difficulty walking at this time, because she had fallen scraping her knee, good hygiene and grooming stating she showers nightly, speech is normal, good eye contact. Clients mood good affect is full and congruent, denies any suicidal homicidal ideation, but does state her concern is having fleeting thoughts of wanting to use her husbands pistol. Client stated that the locked the pistol away from her for safety. Client was accompanied with her mother during the session. Client did describe the stressors she has been experiencing. Clients mother only added into the conversation briefly, even when stating how she and her father could support her self care. Presenting Problem(s): Familial stressors Intervention: QAP utilized motivational interviewing to gather information about current familial stresses as well as using open ended questions. QAP helped client identify the negative self talk, and the unrealistic expectation of wanting to never have any down time. Client listed the duties she has scheduled. QAP validated the feelings of being overwhelmed. Client was encouraged to list all of the items she does in one day, to use reality testing to see if she is lazy and should be up doing something. QAP discussed how client does not give herself permission to relax, or have time down. Client discussed how the family had time away but it still made her exhausted. Client was helped to identify the the duties that she has as a mother does not stop even though the family is on an outing. QAP assisted client identify negative self talk. Client was encouraged to use positive affirmations to counter negative talk. Client was encouraged to identify the times she is feeling overwhelmed and just to stop her thinking at that point to counter her thinking to a positive manner instead of should have, could have, would have, all or nothing thinking, or black and white thinking. Client Response to Intervention: Client reported I feel much better now. I have never done this and didnt know I could feel better by talking to someone like this. Final Disposition: Client was pleasant and thankful. Safety Plan Completed/Updated: No Risks Date Date of last Risks: 01/12/24 Suicide Risk Assessment In the last 30 days have you... Little interest or pleasure in doing things: several days Feeling down, depressed, or hopeless: several days PHQ-2 Score: 2 Total (If greater than 3 please do full PHQ-9): No Have you had suicidal thoughts?: Not At All Do you ever wish you weren't alive anymore?: Not At All Suicide Risk Score: 2 Patient score 3 or greater or had suicidal thoughts?: No Risk to Others Current or History of HI: Denies any homicidal thoughts, plans, intentions, or time frames Previous and/or current violence: No Previous and/or current threats (verbal/physical): No If both Yes, then complete full screening: Yes Other Self-Harm or Risk Taking Behaviors Other Risk Taking Behaviors:: None Protective Factors Protective Factors and Deterrents: Identifies a reason for living, Responsibility to family or others, Fear of or dying due to pain and suffering and Engaged in work or school Final Disposition of Risk Screening Final Disposition: No Emergency response: Safety planning Meds NPU Home Medications Medication Instructions Recorded Confirmed Last Taken Type amoxicillin 875 mg-potassium 1 tab PO BID 7 days #14 tabs 01/11/24 01/16/24 01/15/24 Rx clavulanate 125 mg tablet fluoxetine 20 mg capsule 40 mg PO DAILY 01/11/24 01/16/24 01/15/24 History Allergies Allergy/AdvReac Type Severity Reaction Status Date / Time No Known Allergies Allergy Verified 01/11/24 08:04 PFS NPU PFS: Social History Smoking and tobacco/nicotine status: never used tobacco/nicotine Mental Status Exam MSE Comments: This is an obese white female in hospital scrubs with adequate grooming and eye contact. Noteworthy laceration below the left knee reportedly obtained a week ago. No abnormal movements except for psychomotor retardation. Cooperative with exam in mild distress. Speech was decreased rate and volume. Mood described as depressed, affect congruent and subdued. Thought process organized. Thought content: Patient denies suicidal or homicidal ideation, there were no delusions reported or noted, she denied any auditory or visual hallucinations. The patient reported feeling fair on the day of the consultation. She denied any current thoughts of hurting or killing herself or others. She also denied feeling paranoid or experiencing hallucinations. She reported feeling anxious and stressed, particularly about her work and financial situation. Attention and concentration were intact and memory appeared reliable but none were formally tested. She is alert and oriented x 3. Insight and judgment are limited and impulse control is impaired. Vitals/I&O/Wt Last Vital Signs Temp 98.1 F 01/16/24 22:00 Pulse 80 01/16/24 22:00 Resp 18 01/16/24 22:00 BP 122/81 01/16/24 22:00 Pulse Ox 96 01/16/24 22:00 O2 Del Method Room Air 01/16/24 22:00 Weight last 48 hrs Weight 94.347 kg Data NPU 01/16/24 11:20 01/16/24 11:20 A&P Assessment and plan (1) Suicidal ideation: (2) Major depressive disorder, recurrent: (3) Anxiety disorder: Plan This is a 28-year-old female with a history of depression with treatment of Prozac since her youngest child was 6 to 8 months old with resolution of symptoms followed by a return of symptoms and a limited abatement of symptoms when the Prozac was increased to 40 mg who presents reporting feeling numb and experiencing weight gain. She has no history of psychiatric hospitalization or therapy. She is currently experiencing financial stress and has some family support. 1. Continue Prozac 40 mg p.o. nightly and start Wellbutrin XL 150 mg p.o. every morning. Will give a one-time dose of the Wellbutrin SR today. 2. Encourage individual, group and milieu therapy. 3. Continue every 15 minute checks for safety. 4. Evaluate for safety for discharge given 96-hour hold. Involuntary Hold Information 96 Hour Hold: 96 Hour Involuntary Admission: Yes 96 Hour Hold Ending Date: 01/20/24 96 Hour Hold Ending Time: 11:05 Attestations NPU Medical Necessity Statement*: Inpatient psychiatric hospitalization is medically necessary and the clinically appropriate intervention at this time. We will monitor medications and make changes as indicated. She will be in the hospital for over 2 midnights. Likely length of stay 4-6 days. Coding Level of Care Code Acute Code for Chg Fwd Diagnoses Suicidal ideation R45.851 Major depressive disorder, recurrent F33.9 Anxiety disorder F41.9
[2024-01-17 06:00] VITALS: BP 119/76; PULSE 79; RESP 18; TEMP 36.4; O2SAT 98
[2024-01-17] MEDS: amoxicillin-clav 875-125 mg Tablet 1 TAB PO ×2 (08:32→21:26)
--- NOTE | 2024-01-17 09:17 | PC.NURSE ---
PT CURRENTLY DENIES SI/HI/AH/VH. PT CURRENTLY DENIES DEPRESSION AND ANXIETY. PT STATES MY HEAD FEELS MORE CLEAR THAN IT DID YESTERDAY. I FEEL SO MUCH BETTER. THIS NURSE CHANGED THE DRESSING ON PT L PATRICK WHICH HAS STITCHES. UPON DRESSING CHANGE THIS NURSE NOTICED THAT THAT WOUND DRAINAGE WAS A YELLOW ORANGE COLOR, THE XAVIER-WOUND APPEARS MACERATED, AND IT APPEARS TO HAVE SOME SLOUGH. THIS NURSE TO ALERT ATTENDING TO NEW FINDINGS. THIS NURSE CLEANSED AREA WITH NORMAL SALINE AND 4X4 GAUZE THEN PATTED AREA DRY. NURSE THEN APPLIED ABSORBENT DRESSING TO AREA AND SECURED WITH TAPE. INITIALS DATE AND TIME APPLIED. PT TOLERATED DRESSING CHANGE WELL. PT IS NOTED TO BE ON ABX WHICH SHE STATES IS FOR THIS WOUND. PT WAS COOPERATIVE WITH ASSESSMENT AND DRESSING CHANGE. PT CURRENT NEEDS ARE MET AT THIS TIME.
[2024-01-17 14:00] VITALS: BP 110/73; PULSE 83; RESP 16; TEMP 36.5; O2SAT 98
--- NOTE | 2024-01-17 16:42 | US_ITS ---
WS: [id number] ULTRASOUND SOFT TISSUES LEFT knee HISTORY: Erythema under L knee at wound and scrape COMPARISON: None available. TECHNIQUE: 2-D and color Doppler imaging is submitted. Ultrasound is directed to the LEFT knee at the area of interest and clinical is concern. There is sof t tissue swelling and edema. There is a small very small complex collection measuring 1.6 x 0.5 x 1.3 cm without increased vascularity. This is probably a small amount of fluid approximately 1.4 cm deep . This is a very minimal amount of fluid may be a resolving hematoma. This is not completely cystic. Not drainable. US/US soft tissue/extremity [id number] IMPRESSION: Very small minimally complex fluid collection at the site of injury and clinica l concern. May be a small soft tissue resolving hematoma.
--- NOTE | 2024-01-17 16:48 | P.CONIM_ITS ---
Providers/Reason For Consult 2 Consulting Physician/Specialty*: Psychiatry Reason for Consult*: Shanique ANTONY Attending Physician: William Young MD Primary Care Provider: Erick Ingram MD History of Present Illness History of Present Illness 28-year-old lady admitted currently on neuropsychiatric unit and sustained an injury a week ago with a laceration to the proximal anterior left stafford with an abrasion inferiorly to that. The wound was treated send underwent closure with 3 sutures in urgent care. She has noticed progressively worsening redness surrounding the wound, and the wound has been draining small amounts of yellowish purulent material. She denies fever or chills. Denies any pain in the wound or surrounding area. States can feel it . Review of Systems 2 Const: Denies: fever(s), chills, body aches or malaise ENMT: Denies: throat pain Card: Denies: chest pain, edema, pre-syncope or dyspnea on exertion Resp: Denies: dyspnea, productive cough, change in phlegm color or hemoptysis GI: Denies: abdominal pain, nausea, vomiting, diarrhea, constipation, hematochezia or melena : Denies: flank pain, urinary frequency or hematuria Musc: Denies: back pain, joint swelling or joint redness Skin/Breast: Denies: rash or new lesions Neuro: Denies: headache(s) Medications/Allergies Home Medications Medication Instructions Recorded Confirmed Last Taken Type amoxicillin 875 mg-potassium 1 tab PO BID 7 days #14 tabs 01/11/24 01/16/24 01/15/24 Rx clavulanate 125 mg tablet fluoxetine 20 mg capsule 40 mg PO DAILY 01/11/24 01/16/24 01/15/24 History Allergies Allergy/AdvReac Type Severity Reaction Status Date / Time No Known Allergies Allergy Verified 01/11/24 08:04 Current Medications Generic Name Dose Route Start Last Admin Trade Name Freq PRN Reason Stop Dose Admin Amoxicillin/Clavulanate Potassium 1 tab 01/16/24 21:00 01/17/24 08:32 Amoxicillin-Clav 875-125 Mg Tablet PO 01/19/24 09:01 1 tab 0900,2100 BINA Administration Protocol PFSH Acute 2 PFSH: Social History Smoking and tobacco/nicotine status: never used tobacco/nicotine Female Reproductive History: Date of last menstrual period: 01/09/24 Vitals/I&O/Wt Last Vital Signs Temp 97.7 F 01/17/24 14:00 Pulse 83 01/17/24 14:00 Resp 16 01/17/24 14:00 BP 110/73 01/17/24 14:00 Pulse Ox 98 01/17/24 14:00 O2 Del Method Room Air 01/17/24 06:00 Weight last 48 hrs Weight 94.347 kg Physical Exam 2 Const: COMMON NORMALS: patient oriented x3 and alert GENERAL APPEARANCE: c ooperative ORIENTATION/CONSCIOUSNESS: Yes awake HENMT: COMMON NORMALS: oropharynx normal Neck/C-Spine: COMMON NORMALS: no JVD Resp: COMMON NORMALS: normal respiratory effort and clear to auscultation bilaterally AUSCULTATION: clear to auscultation bilaterally Cardio: COMMON NORMALS: no JVD, regular rhythm, S1 normal heart sound present, S2 normal heart sound present and No murmurs present (Cardio) RHYTHM: regular rhythm HEART SOUNDS: S1 normal heart sound present and S2 normal heart sound present GI: COMMON NORMALS: Normal to inspection, nondistended, normoactive bowel sounds present, Soft to palpation and non-tender PALPATION: Yes Soft to palpation Extremity: COMMON NORMALS: no joint enlargement and no pedal edema Neuro: COMMON NORMALS: patient oriented x3 and moves all extremities S ENSORIUM/ORIENTATION: Yes alert Skin: COMMON NORMALS: no rashes or lesions noted NARRATIVE SKIN EXAM: Laceration below left knee with sutures x 3, as well as elongated about 78 cm long, 3 cm wide abrasion below the left knee. Surrounding cellulitis. Small amount of yellowish drainage around the edges of the laceration. Mild localized swelling around the area of erythema. No localized bulge or fluctuance. GENERAL SKIN EXAM: no rashes or lesions noted Data 01/16/24 11:20 01/16/24 11:20 A&P Assessment and plan (1) Wound infection: Wound infection after laceration, sutures in place, small amount of purulent material coming out of the wound laterally, I do not feel fluctuance, does have surrounding cellulitis around the wound and abrasion below the wound. Afebrile, has not had leukocytosis. Reviewed vitals, CBC, CMP from yesterday, psychiatry note. Discussed with psychiatrist. As she has been on Augmentin but is still developing cellulitis, appears to be purulent cellulitis, will broaden coverage to cover for MRSA, continue Augmentin, and Bactrim. Collect wound culture. Remove sutures, putting in wound care orders to irrigate the wound with saline, apply Hydrofera Blue, gauze dressing. Continue antibiotic coverage. Will additionally assess with ultrasound for any underlying pocket/abscess. Repeat chemistry, monitor for signs of potassium abnormality, ROSANNE with Bactrim. Monitor for risk of C. difficile with antibiotics. (2) Cellulitis: As above. Follow-up CBC, monitor for fever. Reassess for leukocytosis. Currently no signs of sepsis. Plan Depression, suicidal ideation: Continue assessment and treatment. Consult Attestations 2 Medical Necessity Statement: Continue admission for assessment management of depression, suicidal ideation. and High MDM includes amount and/or complexity of data reviewed/ordered [ previous or external records, resulted lab(s)/test(s), ordered lab(s)/test(s) and other healthcare professional discussion] and described risk of complication, morbidity or mortality of management as documented Diagnoses Wound infection T14.8XXA; L08.9 Cellulitis L03.90
[2024-01-17] MEDS: buPROPion SR (12 HR) 150 mg Tablet PO (17:25)
[2024-01-17] MEDS: sulfamethoxazole-trimeth DS 160-800 mg Tablet 1 TAB PO (17:25)
--- NOTE | 2024-01-17 17:46 | PC.NURSE ---
THIS NURSE REMOVED 3 SUTURES FROM PT R BELOW THE KNEE FROM INJURY PRIOR TO HOSPITALIZATION PER PHYSICIAN ORDERS. WOUND CULTURE WAS OBTAINED AND SENT OFF TO LAB. THIS NURSE THE CLEANSED WOUND WITH NORMAL SALINE, PATTED AREA DRY, APPLIED HYDROFERA BLUE TO WOUND AND COVERED WITH GAUZE PER PHYSICIAN ORDERS. PT TOLERATED WOUND DRESSING WELL. THIS NURSE EDUCATED PT ON REASON FOR TYPE OF DRESSING, REASON FOR CULTURE, REASON FOR REMOVING SUTURES AND ALERTED PT TO ADDITIONAL ABX BEING ADDED TO HER TREATMENT PLAN. PT VERBALIZED UNDERSTANDING AND ALL QUESTIONS WERE ANSWERED.
[2024-01-17 20:39] VITALS: BP 103/62; PULSE 74; RESP 17; TEMP 36.4; O2SAT 99
[2024-01-17] MEDS: fluoxetine 20 mg Capsule 40 MG PO (21:26)
[2024-01-18 06:00] VITALS: BP 114/77; PULSE 93; RESP 18; TEMP 36.7; O2SAT 98
[2024-01-18 08:08] LABS: Basophils # 0.1 10^3/uL (0.0-0.1); Basophils % 0.8 %; Eosinophils # 0.1 10^3/uL (0.0-0.8); Eosinophils % 1.5 %; Hematocrit 42.8 % (36-47); Lymphocytes # 2.1 10^3/uL (0.8-4.8); Lymphocytes % 26.9 %; Mean Corpuscular HGB Conc 33.6 g/dL (30-55); Mean Corpuscular Hemoglobin 28.5 pg (27-33); Mean Corpuscular Volume 84.6 fl (85-98); Mean Platelet Volume 10.5 fL (7.4-10.4); Monocytes # 0.6 10^3/uL (0.2-0.9); Monocytes % 7.7 %; Neutrophils # 4.87 10^3/uL (1.8-7.7); Neutrophils % 62.8 %; Nucleated Red Blood Cells % 0 %; Platelet Count 246 10^3/cmm (157-399); Red Blood Count 5.06 10^6/uL (3.85-5.65); Red Cell Distribution Width 12.4 % (12.1-15.1); White Blood Count 7.76 10^3/uL (3.29-11.43)
[2024-01-18 08:25] LABS: Anion Gap 17.3 (5-19); Blood Urea Nitrogen 10 mg/dL (6-20); Calcium 9.4 mg/dL (8.5-10.5); Carbon Dioxide 24 mmol/L (22-29); Chloride 100 mmol/L (98-107); Creatinine Clr Calc Pharmacy 161.5729; Glucose 100 mg/dL (65-115); Osmolality Calculated 283 mOsm/kg (285-295); Potassium 4.3 mmol/L (3.5-5.1); Sodium 137 mmol/L (136-145)
[2024-01-18] MEDS: buPROPion XL (24 HR) 150 mg Tablet PO (08:35)
[2024-01-18] MEDS: sulfamethoxazole-trimeth DS 160-800 mg Tablet 1 TAB PO ×2 (08:35→18:10)
[2024-01-18] MEDS: amoxicillin-clav 875-125 mg Tablet 1 TAB PO ×2 (08:35→21:30)
--- NOTE | 2024-01-18 09:13 | PC.NURSE ---
UP IN DAY ROOM READING A BOOK NO DISTRESS NOTED. DENIES SI/HI AND AVH AT THIS TIME. RATES ANXIETY AND DEPRESSION 0/10. DRESSING TO LEFT LOWER PATRICK IS NOTED TO BE CLEAN/DRY AND INTACT AT THIS TIME. CONTINUE TO AWAIT ULTRASOUND RESULTS OF WOUND. PT IS ON ANTIBIOTIC THERAPY AT THIS TIME FOR INFECTION IN THE WOUND. PT WOUND WAS PRIOR TO ADMISSION WHEN PT STATES SHE FELL ON GRAVEL. PT GOAL FOR THE DAY IS TO READ A BOOK SINCE I NEVER HAVE TIME AT HOME. PT APPEARS TO BE IN GOOD SPIRITS. DENIES PAIN. ALL QUESTIONS ANSWERED AND SUPPORT WAS VOICED.
[2024-01-18 14:00] VITALS: BP 114/77; PULSE 90; RESP 15; TEMP 36.3; O2SAT 96
--- NOTE | 2024-01-18 14:58 | P.PN_ITS ---
Subjective 2 Subjective: She reports she is doing all right. Denies fever or chills. No worsening in symptoms in her leg. Vitals/I&O/Wt Last Vital Signs Temp 97.3 F L 01/18/24 14:00 Pulse 90 01/18/24 14:00 Resp 15 01/18/24 14:00 BP 114/77 01/18/24 14:00 Pulse Ox 96 01/18/24 14:00 O2 Del Method Room Air 01/18/24 06:00 Physical Exam 2 Const: COMMON NORMALS: patient oriented x3 and alert GENERAL APPEARANCE: c ooperative ORIENTATION/CONSCIOUSNESS: Yes awake HENMT: COMMON NORMALS: oropharynx normal Neck/C-Spine: COMMON NORMALS: no JVD Resp: COMMON NORMALS: normal respiratory effort and clear to auscultation bilaterally AUSCULTATION: clear to auscultation bilaterally Cardio: COMMON NORMALS: no JVD, regular rhythm, S1 normal heart sound present, S2 normal heart sound present and No murmurs present (Cardio) RHYTHM: regular rhythm HEART SOUNDS: S1 normal heart sound present and S2 normal heart sound present GI: COMMON NORMALS: Normal to inspection, nondistended, normoactive bowel sounds present, Soft to palpation and non-tender PALPATION: Yes Soft to palpation Extremity: COMMON NORMALS: no joint enlargement and no pedal edema Neuro: COMMON NORMALS: patient oriented x3 and moves all extremities S ENSORIUM/ORIENTATION: Yes alert Skin: COMMON NORMALS: no rashes or lesions noted NARRATIVE SKIN EXAM: Laceration below left knee with sutures x 3, as well as elongated about 78 cm long, 3 cm wide abrasion below the left knee. Surrounding cellulitis. Small amount of yellowish drainage around the edges of the laceration. Mild localized swelling around the area of erythema. No localized bulge or fluctuance. GENERAL SKIN EXAM: no rashes or lesions noted Data 01/18/24 08:00 01/18/24 08:00 Micro: Microbiology 01/17/24 16:27 Gram Stain - Final Leg - #1 Wound Culture - Preliminary A&P Assessment and plan (1) Wound infection: Reviewed vitals, CBC, BMP. Afebrile, no leukocytosis. Reviewed soft tissue ultrasound, wound culture. Surrounding cellulitis is with improvement. However, with purulence in the wound bed, as well as finding of complex fluid collection underlying the wound would seek evaluation with surgery for additional debridement/I&D. Continue wound care, broadened antibiotic with coverage for MRSA. Follow-up wound culture. Collect wound culture. Removed sutures, putting in wound care orders to irrigate the wound with saline, apply Hydrofera Blue, gauze dressing. Repeat chemistry, monitor for signs of potassium abnormality, ROSANNE with Bactrim. Monitor for risk of C. difficile with antibiotics. (2) Cellulitis: With improvement, as above. Follow-up CBC, monitor for fever. Reassess for leukocytosis. Currently no signs of sepsis. Plan Depression, suicidal ideation: Reviewed psychiatry note. Continue assessment and treatment. Attestations 2 Medical Necessity Statement*: Continue admission for assessment management of depression, suicidal ideation. Diagnoses Wound infection T14.8XXA; L08.9 Cellulitis L03.90
--- NOTE | 2024-01-18 15:06 | P.CONIM_ITS ---
Providers/Reason For Consult 2 Consulting Physician/Specialty*: Dr. Yves Yanes, DO/General surgery Reason for Consult*: Left knee wound Attending Physician: William Young MD Primary Care Provider: Erick Ingram MD History of Present Illness History of Present Illness Paola Combs is a 28 year old female who is currently in the neuropsychiatric unit sustained a wound to her left knee about 1 week ago, reportedly. She has not been very clear about the nature of her injury. She went to the urgent care and received a few stitches which were subsequently removed. She was placed on Augmentin. Hospitalist was consulted on the patient and requested consultation by general surgery. Patient reports that she has constant dull pain to the left knee that does not radiate. Patient makes pain worse. Nothing seems to make the pain better. She has had some yellowish discharge. Denies any fever or chills Review of Systems 2 General: Reports: 10 or more systems reviewed and unremarkable except in HPI and below Medications/Allergies Home Medications Medication Instructions Recorded Confirmed Last Taken Type amoxicillin 875 mg-potassium 1 tab PO BID 7 days #14 tabs 01/11/24 01/16/24 01/15/24 Rx clavulanate 125 mg tablet fluoxetine 20 mg capsule 40 mg PO DAILY 01/11/24 01/16/24 01/15/24 History Allergies Allergy/AdvReac Type Severity Reaction Status Date / Time No Known Allergies Allergy Verified 01/11/24 08:04 Current Medications Generic Name Dose Route Start Last Admin Trade Name Freq PRN Reason Stop Dose Admin Amoxicillin/Clavulanate Potassium 1 tab 01/16/24 21:00 01/18/24 21:30 Amoxicillin-Clav 875-125 Mg Tablet PO 01/19/24 09:01 1 tab 0900,2100 BINA Administration Protocol Bupropion HCl 150 mg 01/17/24 18:00 01/17/24 17:25 Bupropion Sr (12 Hr) 150 Mg Tablet PO 150 mg ONCE BINA Administration Bupropion HCl 150 mg 01/18/24 09:00 01/18/24 08:35 Bupropion Xl (24 Hr) 150 Mg Tablet PO 150 mg DAILY BINA Administration Fluoxetine HCl 40 mg 01/17/24 21:00 01/18/24 21:30 Fluoxetine 20 Mg Capsule PO 40 mg BEDTIME BINA Administration Trimethoprim/Sulfamethoxazole 1 tab 01/17/24 18:00 01/18/24 18:10 Sulfamethoxazole-Trimeth Ds 160-800 Mg Tablet PO 1 tab BID BINA Administration Protocol PFSH Acute 2 PFSH: Social History Smoking and tobacco/nicotine status: never used tobacco/nicotine Female Reproductive History: Date of last menstrual period: 01/09/24 Vitals/I&O/Wt Last Vital Signs Temp 98.4 F 01/19/24 06:00 Pulse 89 01/19/24 06:00 Resp 18 01/19/24 06:00 BP 111/57 01/19/24 06:00 Pulse Ox 97 01/19/24 06:00 O2 Del Method Room Air 01/19/24 06:00 Physical Exam 2 Narrative: General : Patient is well developed , no acute distress, oriented x3 Head : Normal cephalic, a-traumatic. Ears : Pinnae and external canal are normal. Hearing is normal. Eyes : PERRLA, Sclera and injection are normal. No conjunctival discharge. Nose : Mucous membranes are without erythema. Throat : buccal mucosa is normal, gums are without significant recession or hypertrophy. Lungs : Equal chest rise bilaterally, no use of accessory muscles, trachea is midline. Cor : Rate and rhythm are normal. Abdomen : Soft, ND, NT, no g/r/m Skin: There is a healing laceration with surrounding abrasion and ecchymosis to the left knee. Minimal cellulitis, no induration or fluctuance Back : non-tender to palpation, no CVA tenderness. Neuro : CN II - XII intact, Upper and lower extremities have equal and full strength Data 01/18/24 08:00 01/18/24 08:00 Micro: Microbiology 01/17/24 16:27 Gram Stain - Final Leg - #1 Wound Culture - Preliminary A&P Assessment and plan (1) Puncture wound of left knee: Plan The 1 week course of Bactrim DS twice daily Clean with soap and water in the shower daily and then cover with dry gauze, no acute surgical intervention medical management per hospitalist Coding Level of Care Code 60344 Diagnoses Puncture wound of left knee S81.032A
--- NOTE | 2024-01-18 15:52 | PC.NURSE ---
NEW ORDERS RECEIVED FOR SURGICAL CONSULT FOR POSSIBLE ABSCESS TO LEFT LOWER PATRICK DUE TO FALL PRIOR TO ADMISSION TO NPU. DR. LINDO WAS NOTIFIED AND CONSULTING WITH DR. LU PER DR. LINDO'S RECOMMENDATION. ORDERS PLACED. PT EDUCATED ON NEW ORDERS/VERBALIZED UNDERSTANDING. SUPPORT VOICED.
--- NOTE | 2024-01-18 16:05 | P.NPUPN_ITS ---
Subjective NPU 2 Subjective: Patient presented today reporting that she is tolerating the medication fine. She reports that she is doing okay and that she has appreciated the assistance of the hospitalist and there was a surgical evaluation as well of her lesions/laceration below her left knee. We discussed the possibility of discharge in the next 48 hours if she continues to feel better. She denied any side effects to medications. Mental Status Exam 2 MSE Comments: This is an obese white female in hospital scrubs with adequate grooming and eye contact. Noteworthy laceration below the left knee reportedly obtained a week ago. No abnormal movements except for psychomotor retardation. Cooperative with exam in mild distress. Speech was decreased rate and volume. Mood described as better, affect congruent and subdued. Thought process organized. Thought content: Patient denies suicidal or homicidal ideation, there were no delusions reported or noted, she denied any auditory or visual hallucinations. The patient reported feeling fair on the day of the consultation. She denied any current thoughts of hurting or killing herself or others. She also denied feeling paranoid or experiencing hallucinations. She reported feeling anxious and stressed, particularly about her work and financial situation. Attention and concentration were intact and memory appeared reliable but none were formally tested. She is alert and oriented x 3. Insight and judgment are limited and impulse control is impaired. Vitals/I&O/Wt Last Vital Signs Temp 97.3 F L 01/18/24 14:00 Pulse 90 01/18/24 14:00 Resp 15 01/18/24 14:00 BP 114/77 01/18/24 14:00 Pulse Ox 96 01/18/24 14:00 O2 Del Method Room Air 01/18/24 06:00 Data NPU 01/18/24 08:00 01/18/24 08:00 Micro: Microbiology 01/17/24 16:27 Gram Stain - Final Leg - #1 Wound Culture - Preliminary Microbiology 01/17/24 16:27 Leg - #1 Gram Stain - Final 01/17/24 16:27 Leg - #1 Wound Culture - Preliminary A&P Assessment and plan (1) Suicidal ideation: (2) Major depressive disorder, recurrent: (3) Anxiety disorder: Plan This is a 28-year-old female with a history of depression with treatment of Prozac since her youngest child was 6 to 8 months old with resolution of symptoms followed by a return of symptoms and a limited abatement of symptoms when the Prozac was increased to 40 mg who presents reporting feeling numb and experiencing weight gain. She has no history of psychiatric hospitalization or therapy. She is currently experiencing financial stress and has some family support. 1. Continued Prozac 40 mg p.o. nightly and started Wellbutrin XL 150 mg p.o. every morning. 2. Encourage individual, group and milieu therapy. 3. Continue every 15 minute checks for safety. 4. Evaluate for safety for discharge given 96-hour hold. Will consider discharge tomorrow. 5. Appreciate hospitalist consult. Will follow recommendations as indicated. Involuntary Hold Information 2 96 Hour Hold: 96 Hour Involuntary Admission: Yes 96 Hour Hold Ending Date: 01/20/24 96 Hour Hold Ending Time: 11:05 Attestations NPU 2 Medical Necessity Statement*: Inpatient psychiatric hospitalization is medically necessary and the clinically appropriate intervention at this time. We will monitor medications and make changes as indicated. Likely length of stay 1-3 days. Coding Level of Care Code Acute Code for [facility] Fwd Diagnoses Suicidal ideation R45.851 Major depressive disorder, recurrent F33.9 Anxiety disorder F41.9
[2024-01-18 19:39] VITALS: BP 98/60; PULSE 85; RESP 18; TEMP 36.6; O2SAT 99
[2024-01-18] MEDS: fluoxetine 20 mg Capsule 40 MG PO (21:30)
[2024-01-19 06:00] VITALS: BP 111/57; PULSE 89; RESP 18; TEMP 36.9; O2SAT 97
[2024-01-19 08:28] LABS: Basophils # 0.1 10^3/uL (0.0-0.1); Basophils % 0.8 %; Eosinophils # 0.2 10^3/uL (0.0-0.8); Eosinophils % 1.7 %; Lymphocytes # 1.7 10^3/uL (0.8-4.8); Lymphocytes % 19.4 %; Mean Corpuscular HGB Conc 33.6 g/dL (30-55); Mean Corpuscular Hemoglobin 28.9 pg (27-33); Mean Corpuscular Volume 85.9 fl (85-98); Mean Platelet Volume 10.3 fL (7.4-10.4); Monocytes # 0.7 10^3/uL (0.2-0.9); Neutrophils # 6.12 10^3/uL (1.8-7.7); Nucleated Red Blood Cells % 0 %; Platelet Count 267 10^3/cmm (157-399); Red Blood Count 5.12 10^6/uL (3.85-5.65); Red Cell Distribution Width 12.3 % (12.1-15.1); White Blood Count 8.75 10^3/uL (3.29-11.43)
[2024-01-19] MEDS: amoxicillin-clav 875-125 mg Tablet 1 TAB PO (08:28)
[2024-01-19] MEDS: buPROPion XL (24 HR) 150 mg Tablet PO (08:28)
[2024-01-19] MEDS: sulfamethoxazole-trimeth DS 160-800 mg Tablet 1 TAB PO (08:28)
[2024-01-19 08:45] LABS: Anion Gap 16.2 (5-19); Blood Urea Nitrogen 9 mg/dL (6-20); Calcium 9.2 mg/dL (8.5-10.5); Carbon Dioxide 24 mmol/L (22-29); Chloride 100 mmol/L (98-107); Creatinine Clr Calc Pharmacy 138.4911; Glomerular Filtration Rate 99.6 mL/min (90-130); Glucose 117 mg/dL (65-115); Osmolality Calculated 282 mOsm/kg (285-295); Potassium 4.2 mmol/L (3.5-5.1); Sodium 136 mmol/L (136-145)
--- NOTE | 2024-01-19 09:40 | PC.NURSE ---
IN BED READING BOOK, NO DISTRESS NOTED. DENIES PAIN. DRESSING TO LEFT LOWER PATRICK IS DRY AND INTACT. PT CONTINUES ANTIBIOTICS FOR SKIN INFECTION. DENIES SI/HI AND AVH AT THIS TIME. RATES ANXIETY AND DEPRESSION 0/10. PT ANTICIPATES DISCHARGE TODAY AND PT STATES SHE IS READY. GOAL FOR SHIFT IS TO GET HOME SAFE AND SEE MY KIDS. ALL QUESTIONS ANSWERED AND SUPPORT WAS VOICED.
--- NOTE | 2024-01-19 11:06 | P.NPUDS_ITS ---
Diagnoses at Discharge Discharge Diagnosis (1) Puncture wound of left knee: Status: Acute Reason for Visit Reason for Visit: MHE, SI Involuntary Hold Information 96 Hour Hold: 96 Hour Involuntary Admission: Yes 96 Hour Hold Ending Date: 01/20/24 96 Hour Hold Ending Time: 11:05 Mental Status Exam MSE Comments: This is an obese white female in hospital scrubs with adequate grooming and eye contact. Noteworthy laceration below the left knee reportedly obtained a week ago. No abnormal movements except for psychomotor retardation. Cooperative with exam in mild distress. Speech was decreased rate and volume. Mood described as better, affect congruent and subdued. Thought process organized. Thought content: Patient denies suicidal or homicidal ideation, there were no delusions reported or noted, she denied any auditory or visual hallucinations. The patient reported feeling fair on the day of the consultation. She denied any current thoughts of hurting or killing herself or others. She also denied feeling paranoid or experiencing hallucinations. She reported feeling anxious and stressed, particularly about her work and financial situation. Attention and concentration were intact and memory appeared reliable but none were formally tested. She is alert and oriented x 3. Insight and judgment are limited and impulse control is impaired. Discharge Data Studies Completed and Pending: Completed Studies During Hospitalization Category Date Time Status US soft tissue an d or extremity [US soft tissue/ Ultrasound 01/17/24 16:42 Completed extremity [id number]] Routine Pending at discharge Category Date Time Status Basic Metabolic P ras AM LABS Lab 01/20/24 04:00 Ordered Complete Blood Co unt w/Auto AM LABS Lab 01/20/24 04:00 Ordered Wound Culture and Gram Stain Routin e Lab 01/17/24 16:27 Results Radiology Impressions Soft Tissue Ultrasound 01/17/24 16:42 IMPRESSION: Very small minimally complex fluid collection at the site of injury and clinical concern. May be a small soft tissue resolving hematoma. Laboratory Results WBC 8.75 10^3/uL (3.2 9-11.43) 01/19/24 08:15 RBC 5.12 10^6/uL (3.8 5-5.65) 01/19/24 08:15 Hgb 14.80 g/dL (11.27 -16.99) 01/19/24 08:15 Hct 44.0 % (36-47) 01/19/24 08:15 MCV 85.9 fl (85-98) 01/19/24 08:15 MCH 28.9 pg (27-33) 01/19/24 08:15 MCHC 33.6 g/dL (30-55) 01/19/24 08:15 RDW 12.3 % (12.1-15.1 ) 01/19/24 08:15 Plt Count 267 10^3/cmm (157 -399) 01/19/24 08:15 MPV 10.3 fL (7.4-10.4 ) 01/19/24 08:15 Neut % (Auto) 70.0 % 01/19/24 08:15 Lymph % (Auto) 19.4 % 01/19/24 08:15 Thomas % (Auto) 8.0 % 01/19/24 08:15 Eos % (Auto) 1.7 % 01/19/24 08:15 Baso % (Auto) 0.8 % 01/19/24 08:15 Neut # (Auto) 6.12 10^3/uL (1.8 -7.7) 01/19/24 08:15 Lymph # (Auto) 1.7 10^3/uL (0.8- 4.8) 01/19/24 08:15 Thomas # (Auto) 0.7 10^3/uL (0.2- 0.9) 01/19/24 08:15 Eos # (Auto) 0.2 10^3/uL (0.0- 0.8) 01/19/24 08:15 Baso # (Auto) 0.1 10^3/uL (0.0- 0.1) 01/19/24 08:15 Nucleated RBC % (a uto) 0 % 01/19/24 08:15 Nucleated RBCs # 0.0 /100WBC 01/19/24 08:15 Sodium 136 mmol/L (136-1 45) 01/19/24 08:15 Potassium 4.2 mmol/L (3.5-5 .1) 01/19/24 08:15 Chloride 100 mmol/L (98-10 7) 01/19/24 08:15 Carbon Dioxide 24 mmol/L (22-29) 01/19/24 08:15 Anion Gap 16.2 (5-19) 01/19/24 08:15 BUN 9 mg/dL (6-20) 01/19/24 08:15 Creatinine 0.7 mg/dL (0.5-0. 9) 01/19/24 08:15 GFR Calculation 99.6 mL/min (90-1 30) 01/19/24 08:15 Glucose 117 mg/dL (65-115 ) H 01/19/24 08:15 Calculated Osmolal ity 282 mOsm/kg (285- 295) L 01/19/24 08:15 Calcium 9.2 mg/dL (8.5-10 .5) 01/19/24 08:15 Total Bilirubin 0.4 mg/dL (0.15-1 .2) 01/16/24 11:20 AST 12 U/L (0-32) 01/16/24 11:20 ALT 10 U/L (0-33) 01/16/24 11:20 Alkaline Phosphata se 87 U/L (35-105) 01/16/24 11:20 Total Protein 7.4 g/dL (6.6-8.7 ) 01/16/24 11:20 Albumin 3.9 g/dL (3.5-5.2 ) 01/16/24 11:20 Globulin 3.5 g/dL (1.3-4.6 ) 01/16/24 11:20 HCG, Qual Negative (Negati ve) 01/16/24 11:55 Salicylates < 0.3 mg/dL (3-10 ) L 01/16/24 11:20 Urine Opiates Scre en Negative ng/mL (N egative) 01/16/24 11:55 Acetaminophen < 5.0 ug/mL (10-3 0) L 01/16/24 11:20 Ur Barbiturates Sc reen Negative ng/mL (N egative) 01/16/24 11:55 Ur Phencyclidine S crn Negative ng/mL (N egative) 01/16/24 11:55 Ur Amphetamines Sc reen Negative ng/mL (N egative) 01/16/24 11:55 U Benzodiazepines Scrn Negative ng/mL (N egative) 01/16/24 11:55 Urine Cocaine Scre en Negative ng/mL (N egative) 01/16/24 11:55 U Marijuana (THC) Screen Negative ng/mL (N egative) 01/16/24 11:55 Ethyl Alcohol < 10 mg/dL (0-10) 01/16/24 11:20 Vitals: Last Vital Signs Temp 98.4 F 01/19/24 06:00 Pulse 89 01/19/24 06:00 Resp 18 01/19/24 06:00 BP 111/57 01/19/24 06:00 Pulse Ox 97 01/19/24 06:00 O2 Del Method Room Air 01/19/24 06:00 Discharge Plan Discharge Patient Disposition: Home Condition: Stable Prescriptions: New sulfamethoxazole-trimethoprim 800-160 mg Tablet 1 tab PO BID 6 Days Qty: 12 0RF bupropion HCl 150 mg Tablet Extended Release 24 Hr 150 mg PO DAILY 30 Days Qty: 30 1RF Continued fluoxetine 20 mg capsule 40 mg PO DAILY 30 Days Qty: 60 1RF Discontinued amoxicillin-pot clavulanate 875-125 mg tablet 1 tab PO BID 7 Days Qty: 14 0RF Rx Instructions: take for 7 days Discharge Orders: Discharge Order (Routine); Ordered 01/19/24 Ordered By: William Young Referrals: Erick Ingram MD [Primary Care Provider] - Discharge Diet: Regular Discharge Activity: Resume usual activity Patient Instructions: Opioid Safety Discharge Attestations NPU Time Spent in Discharge Care*: less than 30 min Specific Discharge Activities: Specific discharge activities: educating patient, discussing with case management assistant/social workers/dc planners, documenting/other paperwork and evaluating patient/reviewing data Coding Level of Care Code Acute Code for [facility] Fwd Diagnoses Puncture wound of left knee S81.032A
[2024-01-19 12:18] VITALS: BP 111/57; PULSE 89; RESP 18; TEMP 36.9; O2SAT 97
[2024-01-19 14:21] VITALS: BP 111/57; PULSE 89; RESP 18; TEMP 36.9; O2SAT 97
--- NOTE | 2024-01-19 14:35 | P.PN_ITS ---
Subjective 2 Subjective: She is continue to improve and states he is doing well. Redness continue to decrease. No further intervention by surgery. She tells me they are working on discharge paperwork for her to be able to return home. Vitals/I&O/Wt Last Vital Signs Temp 98.4 F 01/19/24 14:21 Pulse 89 01/19/24 14:21 Resp 18 01/19/24 14:21 BP 111/57 01/19/24 14:21 Pulse Ox 97 01/19/24 14:21 O2 Del Method Room Air 01/19/24 06:00 Physical Exam 2 Const: COMMON NORMALS: patient oriented x3 and alert GENERAL APPEARANCE: c ooperative ORIENTATION/CONSCIOUSNESS: Yes awake HENMT: COMMON NORMALS: oropharynx normal Neck/C-Spine: COMMON NORMALS: no JVD Resp: COMMON NORMALS: normal respiratory effort and clear to auscultation bilaterally AUSCULTATION: clear to auscultation bilaterally Cardio: COMMON NORMALS: no JVD, regular rhythm, S1 normal heart sound present, S2 normal heart sound present and No murmurs present (Cardio) RHYTHM: regular rhythm HEART SOUNDS: S1 normal heart sound present and S2 normal heart sound present GI: COMMON NORMALS: Normal to inspection, nondistended, normoactive bowel sounds present, Soft to palpation and non-tender PALPATION: Yes Soft to palpation Extremity: COMMON NORMALS: no joint enlargement and no pedal edema Neuro: COMMON NORMALS: patient oriented x3 and moves all extremities S ENSORIUM/ORIENTATION: Yes alert Skin: COMMON NORMALS: no rashes or lesions noted NARRATIVE SKIN EXAM: Laceration below left knee with sutures x 3, as well as elongated about 7-8 cm long, 3 cm wide abrasion below the left knee. Resolving surrounding cellulitis. No localized bulge or fluctuance. GENERAL SKIN EXAM: no rashes or lesions noted Data 01/19/24 08:15 01/19/24 08:15 Micro: Microbiology 01/17/24 16:27 Gram Stain - Final Leg - #1 Wound Culture - Preliminary A&P Assessment and plan (1) Wound infection: Reviewed vitals, CBC, BMP. Afebrile, no leukocytosis. Denies chills or fever. Resolving surrounding cellulitis around the wound. Was assessed by surgery, no additional surgical intervention needed on review of surgery note. As per recommendation she is continued on Bactrim to provide MRSA coverage. Wound culture unfortunately unrevealing with rare mixed superficial celso on day 2. Please follow-up final culture. Discussed with her risks with Bactrim including electrolyte abnormalities, with hyper or hypokalemia, acute kidney injury, please follow-up chemistry in office. Follow-up for resolution of wound infection, continued healing. Soft tissue ultrasound initially showing complex fluid collection underlying the wound would surgery consultation was obtained. Continue wound care, broadened antibiotic with coverage for MRSA. Follow-up wound culture. Collect wound culture. Removed sutures, putting in wound care orders to irrigate the wound with saline, apply Hydrofera Blue, gauze dressing. Repeat chemistry, monitor for signs of potassium abnormality, ROSANNE with Bactrim. Monitor for risk of C. difficile with antibiotics. (2) Cellulitis: Resolving cellulitis around the wound. Plan Depression, suicidal ideation: Reviewed psychiatry note. Continue assessment and treatment. Attestations 2 Medical Necessity Statement*: Arrangements are being made for discharge. and High MDM includes described risk of complication, morbidity or mortality of management as documented Diagnoses Wound infection T14.8XXA; L08.9 Cellulitis L03.90
== END 2024-01-19 14:40 | disposition home or self-care (01) | DRG 885 ==
LOC: ER 14:03 → NP 15:05
PROVIDERS: Internal Medicine; Admitting Provider Psychiatry & Neurology Psychiatry; Emergency Provider Emergency Medicine; PCP Family Medicine; Visit Provider Psychiatry & Neurology Psychiatry
DX: F33.9 Major depressive disorder, recurrent, unspecified (principal); R45.851 Suicidal ideations; L03.116 Cellulitis of left lower limb; L08.9 Local infection of the skin and subcutaneous tissue, unspecified; T14.8XXA Other injury of unspecified body region, initial encounter; Y99.9 Unspecified external cause status; F41.9 Anxiety disorder, unspecified
CPT/HCPCS: 36415; 76882; 80048; 80053; 80306; 80307; 81025; 85025; 87070; 87075; 87077; 87186; 87205; 97150; 97165; 99285

== ENCOUNTER → 2024-05-15 07:06 | Outpatient (BNVA) | payer SELFPAY | PROVIDERS: PCP Family Medicine | DX: N39.0 Urinary tract infection, site not specified (principal) | CPT/HCPCS: 81000 ==

== ENCOUNTER 2025-03-26 19:48 | Emergency (ER) | payer SELFPAY ==
--- OUTSIDE RECORDS SUMMARY | 2025-03-26 19:56 | XMS_ITS | Patient Health Record ---
Author Organization [facility] Address [address] [place] [address] Care Team Providers Care Fur Finisher Tailor Name Role Phone ( [facility] ), PHYSICIAN NOT IDENTIFIED Primary Care Provider Unavailable Cj Reyez Unavailable [phone] Allergies No Known Allergies Reason For Referral No Information Medications Medication SIG (Take, Route, Fr equency, Duration) Notes Start Date End Date Status Peridex 0.12 % Solution Gently rinse 1/2 cap full for one minute and spit. DO NOT SWALLOW Mouth/Throat two times a day; Duration: 7 days 03/31/2023 Active Social History Sex Assigned At : Social History Observation Description Sex Assigned At Female Plan Of Treatment No Information Insurance Providers Payer Name Payer Address Payer Phone Subscriber Number Group Number Insured Name Patient Relationship to Insured Coverage Start Date Coverage End Date [employer] [address] [place] [address] [id number] ANNEMARIE DOW Self - patient is the insured
[2025-03-26 20:06] VITALS: BP 123/76; PULSE 99; RESP 18; TEMP 36.8; O2SAT 99; BMI 30.8
[2025-03-26 21:24] VITALS: BP 127/60; PULSE 74; O2SAT 100
[2025-03-26] MEDS: methylPREDNISolone (DEPO) 80 MG/ML INJ 1 mL IM (22:11)
[2025-03-26 22:17] VITALS: BP 108/63; PULSE 70; O2SAT 99
--- NOTE | 2025-03-27 00:38 | ED_ITS ---
HPI - Allergic Reaction General: Chief complaint: Allergic Reaction Stated complaint: Allergic Reaction Time Seen by Provider: 03/26/25 20:16 Source: patient Mode of arrival: ambulatory Limitations: no limitations History of Present Illness: HPI narrative: Patient is a 29-year-old female who presents the emergency department complaining of hives that started 2 days ago. States that she went to urgent care and was given IM steroid shot and this seemed to improve but states that the rash is still been intermittent since. Does not know of any possible irritant or potential causation for the rash. She states it is itchy and is primarily to the upper extremities and back but also has been to her abdomen and bilateral thighs. She has been taking Benadryl every 6 hours for her itching. States that prior to coming in the rash was the worst it has been, but it has improved since being examined in the emergency department. No reported known allergies, no new soaps, laundry detergent, potential food ingestion, or new animals. Reportedly has strong family history of multiple allergies. No trouble breathing, tongue or throat swelling, nausea/vomiting, chest tightness, or any other concerning signs or symptoms of anaphylaxis. Her vitals are stable at this time. MD complaint: hives Onset (ago): day(s) Exposure: unknown Associated symptoms: Reports itching; Deny abdominal pain, nausea or vomiting Treatment prior to arrival: benadryl and steroids Previous Allergic Reaction History: none Related Data Previous Rx's ?Medication ?Instructions ?Recorded bupropion HCl 150 mg 24 hr tablet, 150 mg PO DAILY 30 days #30 tabs 01/19/24 extended release fluoxetine 20 mg capsule 40 mg (2 x 20 mg) PO DAILY 3 0 days 01/19/24 #60 caps nitrofurantoin 100 mg PO Q12H 7 days #14 ca ps 05/15/24 monohydrate/macrocrystals 100 mg capsule (Macrobid) prednisone 10 mg tablets in a dose 10 mg PO DIRECTE D #21 ea 03/26/25 pack Allergies Allergy/AdvReac Type Severity Reaction Status Date / Time No Known Allergies Allergy Verified 03/26/25 20:10 Review of Systems General: Reports: 10 or more systems reviewed and unremarkable except in HPI and below Const: Denies: fever(s) or chills ENMT: Denies: throat pain, uvular edema or odynophagia Card: Denies: chest pain Resp: Denies: dyspnea, productive cough, wheezing or stridor GI: Denies: abdominal pain, nausea, vomiting or diarrhea Musc: Denies: extremity pain or joint pain Skin/Breast: Reports: rash and pruritus; Denies: skin pain, skin tenderness or new lesions Neuro: Denies: headache(s) PFSH ED PFSH: Social History Smoking and tobacco/nicotine status: never used tobacco/nicotine Physical Exam Const: COMMON NORMALS: no acute distress, average body habitus, patient oriented x3, no limitations, healthy appearing, alert and well nourished OTHER: Nontoxic-appearing HENMT: COMMON NORMALS: normocephalic and atraumatic HEAD & SCALP: normocephalic and atraumatic THROAT: no uvular edema OTHER: No angioedema or tongue or throat swelling Neck/C-Spine: COMMON NORMALS: full ROM, no lymphadenopathy, supple and no meningeal signs Resp: COMMON NORMALS: normal respiratory effort, No use of accessory muscles and clear to auscultation bilaterally AUSCULTATION: clear to auscultation bilaterally OTHER: No respiratory distress, no wheezing or stridor Cardio: COMMON NORMALS: regular rate and regular rhythm RATE: regular rate RHYTHM: regular rhythm Extremity: COMMON NORMALS: full ROM and capillary refill normal Neuro: COMMON NORMALS: patient oriented x3 SENSORIUM/ORIENTATION: Yes alert MENINGEAL SIGNS: Yes no meningeal signs Skin: COMMON NORMALS: no wounds and turgor normal NARRATIVE SKIN EXAM: Diffuse urticarial rash primarily involving the trunk and upper extremities GENERAL SKIN EXAM: turgor normal Course Vital Signs: Vital signs: Vital Signs Temperature 98.2 F 03/26/25 20:06 Pulse Rate 70 03/26/25 22:17 Respiratory Rate 18 03/26/25 20:06 Blood Pressure 108/63 03/26/25 22:17 Pulse Oximetry 99 03/26/25 22:17 Oxygen Delivery Me thod Room Air 03/26/25 21:24 MDM - Allergic Reaction Medical Decision Making Patient presenting with signs and symptoms of diffuse urticaria, unknown causation. It has been waxing and waning, suspect that this is possible an allergic reaction and encouraged her to keep a log of potential contact exposure, will start her on prednisone taper and also give her shot of Depo- Medrol here in the emergency department. There are no signs or symptoms of anaphylaxis and no need for epinephrine or further workup in the emergency department at this time. Told her to add Pepcid for further antiitch and she is to return with any signs or symptoms of anaphylaxis and follow-up with primary care for allergy testing if she continues to have rash. No radiology studies performed this visit Discharge Plan Discharge Patient Disposition: Home Clinical Impression: Urticaria Condition: Stable Prescriptions: New prednisone 10 mg tablets,dose pack 10 mg PO DIRECTED Qty: 21 0RF Rx Instructions: see taper instructions 6 tablets on day 1, 5 tablets on day 2, 4 tablets on day 3, 3 tablets on day 4, 2 tablets on day 5, and 1 tablet a day 6. P.o. No Action nitrofurantoin monohyd/m-cryst [Macrobid] 100 mg capsule 100 mg PO Q12H 7 Days Qty: 14 0RF Rx Instructions: must administer with a meal/food bupropion HCl 150 mg Tablet Extended Release 24 Hr 150 mg PO DAILY 30 Days Qty: 30 1RF fluoxetine 20 mg capsule 40 mg PO DAILY 30 Days Qty: 60 1RF Discharge Orders: Discharge ED (Routine); Ordered 03/26/25 Ordered By: Russell Monson Referrals: Erick Ingram MD [Primary Care Provider, [facility]] Patient Instructions: Patient Portal & [facility] Instructions Activity Restrictions/Additional Instructions: Urticaria Discharge Instructions Diagnosis: Acute urticaria, no evidence of anaphylaxis. ED Management: Received intramuscular Depo-Medrol (methylprednisolone). Discharged with a prednisone taper. --- Discharge Instructions: - Medication Management: - Prednisone taper: Prescribe a short course (<=0 days) of oral prednisone, as recommended for acute urticaria exacerbations. Dosage should be individualized, typically 20?50 mg/day, with rapid tapering as tolerated. Long-term corticosteroid use is contraindicated due to risk of adverse effects (osteoporosis, adrenal suppression, hyperglycemia, mood changes, etc.). - Antihistamines: Initiate or continue a non-sedating, second-generation H1- antihistamine (e.g., cetirizine, loratadine, fexofenadine) as first-line therapy. These agents are preferred for their efficacy and favorable safety profile. Dose escalation (up to 4x standard dose) may be considered if symptoms persist. - First-generation antihistamines (e.g., diphenhydramine) may be used for breakthrough symptoms, but apprise counselor regarding sedation and impaired motor skills. - Adjuncts: H2-antihistamines and leukotriene receptor antagonists (e.g., montelukast) may be considered in refractory cases, though evidence is limited. - Trigger Avoidance: - Review and eliminate potential triggers identified by history (medications, foods, infections). - Empiric elimination diets are not recommended unless guided by history and testing. - Extensive laboratory or viral evaluation is not indicated unless suggested by clinical context. - Monitoring and Follow-up: - Advise patient to monitor for signs of anaphylaxis (rapid onset of throat tightness, difficulty breathing, hypotension, tongue/lip swelling). Instruct to seek emergency care if these occur. - Nutrition Teacher regarding possible transient corticosteroid side effects: insomnia, mood changes, hyperglycemia, fluid retention. - Schedule outpatient follow-up with primary care or allergy/immunology if symptoms persist beyond 6 weeks, recur, or worsen. - If urticaria becomes chronic (>6 weeks), consider referral for further evaluation and management. - Patient Education: - Urticaria is often self-limited and benign, but can be distressing. Most cases resolve spontaneously. - Emphasize adherence to antihistamine therapy and completion of corticosteroid taper. - Reassure that topical corticosteroids are not effective for urticaria. --- Summary of Evidence: - Second-generation H1-antihistamines are the mainstay of therapy for acute urticaria. - Short courses of systemic corticosteroids may be used for severe or refractory cases, but long-term use is discouraged due to adverse effects. - Trigger identification and avoidance are recommended, but extensive workup is unnecessary unless indicated by history. Print Language: Georgian Coding Level of Care Code ED Mechanical Apprentice for Lillie Stapleton
--- NOTE | 2025-03-27 07:43 | DCPLANNER ---
sent to dermatology for referral
== END 2025-03-26 22:18 | disposition home or self-care (01) ==
PROVIDERS: Emergency Provider Physician Assistant; PCP Family Medicine
DX: L50.9 Urticaria, unspecified (principal)
CPT/HCPCS: 96372; 99284; J1010